=== PATIENT | male | born 1940 | race Caucasian/White ===

== ENCOUNTER → 2019-07-09 14:45 | Outpatient (BNVA) | payer MEDICARE, OTHER, SELFPAY | PROVIDERS: Family Provider Internal Medicine; PCP Internal Medicine; Visit Provider Family Medicine | DX: R05 Cough (principal) | CPT/HCPCS: 85025 ==

== ENCOUNTER 2019-07-18 15:57 | Inpatient (IN) | payer OTHER, MEDICARE, SELFPAY ==
[2019-07-18] VITALS (54 sets, daily range): BP systolic 82–127; BP diastolic 40–81; PULSE 0–95; RESP 12–28; TEMP 36.2–36.4; O2SAT 80–100; BMI 31.4
--- NOTE | 2019-07-18 15:59 | ED_ITS ---
Entered by Janine Campos, acting as scribe for HPI - Altered Mental Status General: Chief Complaint: General Medical Stated Complaint: ams/low hr Time Seen by Provider: 07/18/19 15:58 Source: EMS Mode of arrival: EMS Limitations: no limitations History of Present Illness: HPI narrative: 78 yo m came to the er by [facility] E[facility]. Ems states that the pt was seen at the dialysis clinic and pt seemed to be altered and have a low heart rate. Ems when they got there the pts hr was in the 60s. Patient has a GCS of 15 according to them. Blood pres sures been stable in route. Patient denies any symptoms. Patient currently has peritoneal dialysis late in that is to be drawn off at 9 PM tonight. MD complaint: altered mental status and other (low heart rate) Onset (ago): day(s) (today) Timing confirmed by: other Severity: mild Context: unknown Associated symptoms: Reports no associated symptoms Review of Systems General: Reports: other (negative unless marked) Resp: Reports: productive cough PFSH ED PFSH: Statuses (acute, chronic, etc) shown below reflect problem list status as previously entered and may not be historically accurate Medical History (Updated 07/18/19 @ 18:48 by Dieter Figueroa MD) Atrial fibrillation (Acute) Coronary artery disease (Acute) Deep venous thrombosis of upper extremity (Acute) End-stage renal disease on peritoneal dialysis (Acute) Hypertension (Acute) Surgical History (Updated 07/18/19 @ 18:36 by Dieter Figueroa MD) History of hernia repair (Acute) Peritoneal dialysis catheter in situ (Acute) Family History (Updated 07/18/19 @ 18:36 by Dieter Figueroa MD) Other Stroke Social History (Updated 07/18/19 @ 18:37 by Dieter Figueroa MD) Smoking and tobacco status: former smoker Alcohol intake: unknown Substance/Drug Use: never Physical Exam Const: COMMON NORMALS: no apparent distress, oriented x3, no limitations, healthy appearing and well nourished EXAM LIMITATIONS: no altered mental status GENERAL APPEARANCE: cooperative, well kempt and well developed ORIENTATION/CONSCIOUSNESS: Yes awake HENMT: COMMON NORMALS: normocephalic, head/scalp atraumatic, hearing grossly normal bilaterally, external ears normal, EAC's normal, external nose normal and moist oral mucous membranes HEAD & SCALP: normal to inspection, normocephalic and atraumatic FACE & SINUS: normal facial exam and face symmetric NOSE: external nose normal and nares normal EXTERNAL EAR: Yes external ears normal EXTERNAL AUDITORY CANAL: EAC's normal MOUTH: oral and palatal mucosa normal and tongue normal Eye: COMMON NORMALS: PERRL, EOMs intact bilaterally, conjunctivae normal and no scleral icterus GENERAL EYE: normal appearance of both eyes and normal light reflex CONJUNCTIVA: Yes conjunctivae normal SCLERA: sclerae normal CORNEA: Yes corneas normal PUPIL: Yes PERRL DIRECT OPHTHALMOSCOPY: Yes normal light reflex Neck/C-Spine: COMMON NORMALS: full ROM, no lymphadenopathy, supple, no meningeal signs and no JVD GENERAL: Yes normal visual inspection and Yes trachea midline CERVICAL SPINE: Yes cervical ROM normal Chest: COMMONS NORMALS: inspection of chest normal and palpation of chest normal Resp: COMMON NORMALS: normal respiratory effort, no retractions, no use of accessory muscles and clear to auscultation bilaterally EFFORT & INSPECTION: Yes able to speak in complete sentences AUSCULTATION: clear to auscultation bilaterally Cardio: COMMON NORMALS: no JVD, regular rate, regular rhythm, S1 normal heart sound, S2 normal heart sound, no gallops, no clicks, no murmurs and no rub JUGULAR VENOUS DISTENTION: no JVD RATE: regular rate RHYTHM: regular rhythm HEART SOUNDS: S1 normal and S2 normal GI: COMMON NORMALS: soft to palpation, non-tender, no hepatosplenomegaly and no masses INSPECTION: Yes normal to inspection PALPATION: Yes soft and Yes no hepatosplenomegaly : COMMON NORMALS: Yes no CVA tenderness BLADDER/KIDNEY EXAM: Yes no CVA tenderness Back/Pelvis: COMMON NORMALS: no CVA tenderness, thoracic and lumbar spine normal to inspection, no thoracic nor lumbar tenderness and thoraco-lumbar ROM normal Extremity: COMMON NORMALS: normal to inspection, full ROM, normal capillary refill, no joint enlargement, no clubbing, cyanosis or edema and no calf tenderness Neuro: COMMON NORMALS: oriented x3, CN's II-XII intact bilaterally, moves all extremities, no focal motor deficits and no sensory deficits noted MENINGEAL SIGNS: Yes no meningeal signs Psych: COMMON NORMALS: mental status grossly normal, thought process normal, cooperative, affect normal, speech normal and activity/motor behavior normal APPEARANCE: Yes well kempt SPEECH: Yes normal speech THOUGHT PROCESS: normal thought process Skin: COMMON NORMALS: no rashes or lesions noted, skin turgor normal, no jaundice, no petechiae and no mottling GENERAL SKIN EXAM: no rashes or lesions noted and turgor normal Course Vital Signs: Vital signs: Vital Signs Temperature 97.1 F L 07/18/19 21:14 Pulse Rate 63 07/18/19 21:45 Respiratory Rate 28 H 07/18/19 21:45 Blood Pressure 126/58 07/18/19 21:45 Pulse Oximetry 99 07/18/19 21:45 MDM - Altered Mental Status MDM Narrative: Medical decision making narrative: Mr. Ramirez is a 78-year-old male who comes in with altered mental status and bradycardia. He arrives stable with a GCS of 15 and stable vital signs. While he was here his heart rate dipped down to 30 as low as 30 itself. He was given atropine 1 mg and his heart rate improved to the 80s. He was asymptomatic and we did not have a chance to recycle his blood pressure during this time. His mentation is maintaining between a GCS of 13-15. With arousal he is a GCS of 15 and answers all questions appropriately. There are multiple possibilities at this time for his altered mental status including stroke, hypercalcemia, hyperammonia anemia/hepatic encephalopathy, sepsis, uremia among many others. The patient's vital signs are improving and staying stable with the therapies we have given including atropine. Narcan has had no effect on his mentation. The case was reviewed with Dr. Figueroa he agrees to a small fluid bolus as the patient is volume depleted clinically. This will help hypercalcemia. The patient has a Crowe catheter in place and has had 2 to 300 cc of urine drained. We will send this to look for infection as well. The patient has been empirically covered with antibiotics. This time again his altered mental status cause is unclear. The patient be admitted to the ICU by Dr. Figueroa for further evaluation and treatment. Lab Data: Attestation: I reviewed the patient's lab results. Labs: Lab Results 07/18/19 07/18/19 07/18/19 Range/Units 15:35 15:35 15:35 WBC 6.5 (4.0-10.0) 10^3/ uL RBC 2.82 L (4.1-5.3) 10^6/u L Hgb 9.4 L (11.7-16.6) g/dL Hct 29.5 L (42.0-52.0) % MCV 104.6 H (80-94) fL MCH 33.3 (28.0-34.0) pg MCHC 31.9 (30.0-36.0) g/dL RDW 16.2 H (12.1-15.1) % Plt Count 295 (130-400) 10^3/c mm MPV 10.3 (7.4-10.4) fL Neut % (Auto) 70.9 % Lymph % (Auto) 16.2 % Rush % (Auto) 9.2 % Eos % (Auto) 2.6 % Baso % (Auto) 0.3 % Neut # (Auto) 4.6 (1.8-7.7) 10^3/u L Lymph # (Auto) 1.1 (0.8-4.8) 10^3/u L Rush # (Auto) 0.6 (0.2-0.9) 10^3/u L Eos # (Auto) 0.2 (0.0-0.8) 10^3/u L Baso # (Auto) 0.0 (0.0-0.1) 10^3/u L Nucleated RBC % (a uto) 0 % Nucleated RBCs # 0.0 /100WBC PT 16.90 H (10.5-13.3) SECO NDS INR 1.33 H (0.8-1.2) Specimen Type Sample Site ABG pH (7.35-7.45) ABG pCO2 (35-45) mmHg ABG pO2 (80.0-100.0) mmH g ABG HCO3 (22-26) mmol/L ABG Base Excess (-2.0-2.0) mmol/ L Louis Test Hematocrit (42-52) % O2 Delivery Device O2 Liters/Min % Transplant Immunologist ID Sodium 140 (136-145) mmol/L Potassium 3.1 L (3.5-5.1) mmol/L Chloride 96 L (98-107) mmol/L Carbon Dioxide 34 H (22-29) mmol/L Anion Gap 13.1 (5-19) BUN 43 H (8-23) mg/dL Creatinine 4.1 H (0.7-1.2) mg/dL Glucose 100 (65-115) mg/dL Calculated Osmolal ity (285-295) mOsm/k g Lactic Acid (0.5-2.2) mmol/L Calcium 13.1 H (8.5-10.5) mg/dL Magnesium 2.1 (1.7-2.3) mg/dL Total Bilirubin 0.3 (0.15-1.2) mg/dL AST 19 (0-40) U/L ALT 10 (0-41) U/L Alkaline Phosphata se 62 (40-130) IU/L Ammonia (16-60) umol/L Troponin T Baselin e (0-15) ng/mL Troponin T 120 Min [place] (0-15) ng/mL Delta Troponin T (0-10) ABS# NT-Pro-B Natriuret Pep 97789 H (0-450) pg/mL Total Protein 6.0 L (6.6-8.7) g/dL Albumin 3.4 L (3.5-5.2) g/dL Globulin 2.6 (1.3-4.6) g/dL TSH (0.27-4.20) uIU/ mL Urine Color (Yellow) Urine Appearance (CLEAR) Urine pH (5-7) Ur Specific Gravit y (1.005-1.030) Urine Protein (Negative) Urine Glucose (UA) (Normal) Urine Ketones (Negative) Urine Occult Blood (Negative) Urine Nitrate (Negative) Urine Bilirubin (NEGATIVE) Urine Urobilinogen (Negative) mg/dL Ur Leukocyte Heaven ase (Negative) Urine RBC (0-2) /hpf Urine WBC (0-5) /hpf Ur Squamous Epith Cells (0-5) Amorphous Sediment Urine Bacteria (NONE) Hyaline Casts Urine Opiates Scre en (Negative) ng/mL Ur Barbiturates Sc reen (Negative) ng/mL Ur Phencyclidine S crn (Negative) ng/mL Ur Amphetamines Sc reen (Negative) ng/mL U Benzodiazepines Scrn (Negative) ng/mL Urine Cocaine Scre en (Negative) ng/mL U Marijuana (THC) Screen (Negative) ng/mL Ethyl Alcohol (0-10) mg/dL Influenza Type A A g (Negative) POC Influenza B Ag (Negative) 07/18/19 07/18/19 07/18/19 Range/Units 15:35 16:02 16:10 WBC (4.0-10.0) 10^3/ uL RBC (4.1-5.3) 10^6/u L Hgb (11.7-16.6) g/dL Hct (42.0-52.0) % MCV (80-94) fL MCH (28.0-34.0) pg MCHC (30.0-36.0) g/dL RDW (12.1-15.1) % Plt Count (130-400) 10^3/c mm MPV (7.4-10.4) fL Neut % (Auto) % Lymph % (Auto) % Rush % (Auto) % Eos % (Auto) % Baso % (Auto) % Neut # (Auto) (1.8-7.7) 10^3/u L Lymph # (Auto) (0.8-4.8) 10^3/u L Rush # (Auto) (0.2-0.9) 10^3/u L Eos # (Auto) (0.0-0.8) 10^3/u L Baso # (Auto) (0.0-0.1) 10^3/u L Nucleated RBC % (a uto) % Nucleated RBCs # /100WBC PT (10.5-13.3) SECO NDS INR (0.8-1.2) Specimen Type Arterial Sample Site Radial, right ABG pH 7.45 (7.35-7.45) ABG pCO2 50.2 H (35-45) mmHg ABG pO2 65.7 L (80.0-100.0) mmH g ABG HCO3 34.6 H (22-26) mmol/L ABG Base Excess 9.3 H (-2.0-2.0) mmol/ L Louis Test Pos Hematocrit 29.3 L (42-52) % O2 Delivery Device Nc O2 Liters/Min 3.0 % Transplant Immunologist ID monro Sodium (136-145) mmol/L Potassium (3.5-5.1) mmol/L Chloride (98-107) mmol/L Carbon Dioxide (22-29) mmol/L Anion Gap (5-19) BUN (8-23) mg/dL Creatinine (0.7-1.2) mg/dL Glucose (65-115) mg/dL Calculated Osmolal ity (285-295) mOsm/k g Lactic Acid 1.7 (0.5-2.2) mmol/L Calcium (8.5-10.5) mg/dL Magnesium (1.7-2.3) mg/dL Total Bilirubin (0.15-1.2) mg/dL AST (0-40) U/L ALT (0-41) U/L Alkaline Phosphata se (40-130) IU/L Ammonia (16-60) umol/L Troponin T Baselin e 244 H* (0-15) ng/mL Troponin T 120 Min [place] (0-15) ng/mL Delta Troponin T (0-10) ABS# NT-Pro-B Natriuret Pep (0-450) pg/mL Total Protein (6.6-8.7) g/dL Albumin (3.5-5.2) g/dL Globulin (1.3-4.6) g/dL TSH (0.27-4.20) uIU/ mL Urine Color (Yellow) Urine Appearance (CLEAR) Urine pH (5-7) Ur Specific Gravit y (1.005-1.030) Urine Protein (Negative) Urine Glucose (UA) (Normal) Urine Ketones (Negative) Urine Occult Blood (Negative) Urine Nitrate (Negative) Urine Bilirubin (NEGATIVE) Urine Urobilinogen (Negative) mg/dL Ur Leukocyte Heaven ase (Negative) Urine RBC (0-2) /hpf Urine WBC (0-5) /hpf Ur Squamous Epith Cells (0-5) Amorphous Sediment Urine Bacteria (NONE) Hyaline Casts Urine Opiates Scre en (Negative) ng/mL Ur Barbiturates Sc reen (Negative) ng/mL Ur Phencyclidine S crn (Negative) ng/mL Ur Amphetamines Sc reen (Negative) ng/mL U Benzodiazepines Scrn (Negative) ng/mL Urine Cocaine Scre en (Negative) ng/mL U Marijuana (THC) Screen (Negative) ng/mL Ethyl Alcohol (0-10) mg/dL Influenza Type A A g (Negative) POC Influenza B Ag (Negative) 07/18/19 07/18/19 07/18/19 Range/Units 16:30 17:46 17:46 WBC (4.0-10.0) 10^3/ uL RBC (4.1-5.3) 10^6/u L Hgb (11.7-16.6) g/dL Hct (42.0-52.0) % MCV (80-94) fL MCH (28.0-34.0) pg MCHC (30.0-36.0) g/dL RDW (12.1-15.1) % Plt Count (130-400) 10^3/c mm MPV (7.4-10.4) fL Neut % (Auto) % Lymph % (Auto) % Rush % (Auto) % Eos % (Auto) % Baso % (Auto) % Neut # (Auto) (1.8-7.7) 10^3/u L Lymph # (Auto) (0.8-4.8) 10^3/u L Rush # (Auto) (0.2-0.9) 10^3/u L Eos # (Auto) (0.0-0.8) 10^3/u L Baso # (Auto) (0.0-0.1) 10^3/u L Nucleated RBC % (a uto) % Nucleated RBCs # /100WBC PT (10.5-13.3) SECO NDS INR (0.8-1.2) Specimen Type Sample Site ABG pH (7.35-7.45) ABG pCO2 (35-45) mmHg ABG pO2 (80.0-100.0) mmH g ABG HCO3 (22-26) mmol/L ABG Base Excess (-2.0-2.0) mmol/ L Louis Test Hematocrit (42-52) % O2 Delivery Device O2 Liters/Min % Transplant Immunologist ID Sodium (136-145) mmol/L Potassium (3.5-5.1) mmol/L Chloride (98-107) mmol/L Carbon Dioxide (22-29) mmol/L Anion Gap (5-19) BUN (8-23) mg/dL Creatinine (0.7-1.2) mg/dL Glucose (65-115) mg/dL Calculated Osmolal ity (285-295) mOsm/k g Lactic Acid (0.5-2.2) mmol/L Calcium (8.5-10.5) mg/dL Magnesium (1.7-2.3) mg/dL Total Bilirubin (0.15-1.2) mg/dL AST (0-40) U/L ALT (0-41) U/L Alkaline Phosphata se (40-130) IU/L Ammonia 19 (16-60) umol/L Troponin T Baselin e (0-15) ng/mL Troponin T 120 Min [place] 224.40 H (0-15) ng/mL Delta Troponin T -19.60 L (0-10) ABS# NT-Pro-B Natriuret Pep (0-450) pg/mL Total Protein (6.6-8.7) g/dL Albumin (3.5-5.2) g/dL Globulin (1.3-4.6) g/dL TSH (0.27-4.20) uIU/ mL Urine Color (Yellow) Urine Appearance (CLEAR) Urine pH (5-7) Ur Specific Gravit y (1.005-1.030) Urine Protein (Negative) Urine Glucose (UA) (Normal) Urine Ketones (Negative) Urine Occult Blood (Negative) Urine Nitrate (Negative) Urine Bilirubin (NEGATIVE) Urine Urobilinogen (Negative) mg/dL Ur Leukocyte Heaven ase (Negative) Urine RBC (0-2) /hpf Urine WBC (0-5) /hpf Ur Squamous Epith Cells (0-5) Amorphous Sediment Urine Bacteria (NONE) Hyaline Casts Urine Opiates Scre en (Negative) ng/mL Ur Barbiturates Sc reen (Negative) ng/mL Ur Phencyclidine S crn (Negative) ng/mL Ur Amphetamines Sc reen (Negative) ng/mL U Benzodiazepines Scrn (Negative) ng/mL Urine Cocaine Scre en (Negative) ng/mL U Marijuana (THC) Screen (Negative) ng/mL Ethyl Alcohol (0-10) mg/dL Influenza Type A A g Negative (Negative) POC Influenza B Ag Negative (Negative) 07/18/19 07/18/19 07/18/19 Range/Units 17:46 17:46 17:46 WBC (4.0-10.0) 10^3/ uL RBC (4.1-5.3) 10^6/u L Hgb (11.7-16.6) g/dL Hct (42.0-52.0) % MCV (80-94) fL MCH (28.0-34.0) pg MCHC (30.0-36.0) g/dL RDW (12.1-15.1) % Plt Count (130-400) 10^3/c mm MPV (7.4-10.4) fL Neut % (Auto) % Lymph % (Auto) % Rush % (Auto) % Eos % (Auto) % Baso % (Auto) % Neut # (Auto) (1.8-7.7) 10^3/u L Lymph # (Auto) (0.8-4.8) 10^3/u L Rush # (Auto) (0.2-0.9) 10^3/u L Eos # (Auto) (0.0-0.8) 10^3/u L Baso # (Auto) (0.0-0.1) 10^3/u L Nucleated RBC % (a uto) % Nucleated RBCs # /100WBC PT (10.5-13.3) SECO NDS INR (0.8-1.2) Specimen Type Sample Site ABG pH (7.35-7.45) ABG pCO2 (35-45) mmHg ABG pO2 (80.0-100.0) mmH g ABG HCO3 (22-26) mmol/L ABG Base Excess (-2.0-2.0) mmol/ L Louis Test Hematocrit (42-52) % O2 Delivery Device O2 Liters/Min % Transplant Immunologist ID Sodium 138 (136-145) mmol/L Potassium 3.1 L (3.5-5.1) mmol/L Chloride 96 L (98-107) mmol/L Carbon Dioxide 30 H (22-29) mmol/L Anion Gap 15.1 (5-19) BUN 44 H (8-23) mg/dL Creatinine 4.2 H (0.7-1.2) mg/dL Glucose 103 (65-115) mg/dL Calculated Osmolal ity 284 L (285-295) mOsm/k g Lactic Acid (0.5-2.2) mmol/L Calcium 12.8 H (8.5-10.5) mg/dL Magnesium (1.7-2.3) mg/dL Total Bilirubin (0.15-1.2) mg/dL AST (0-40) U/L ALT (0-41) U/L Alkaline Phosphata se (40-130) IU/L Ammonia (16-60) umol/L Troponin T Baselin e (0-15) ng/mL Troponin T 120 Min [place] (0-15) ng/mL Delta Troponin T (0-10) ABS# NT-Pro-B Natriuret Pep (0-450) pg/mL Total Protein (6.6-8.7) g/dL Albumin (3.5-5.2) g/dL Globulin (1.3-4.6) g/dL TSH 3.10 (0.27-4.20) uIU/ mL Urine Color (Yellow) Urine Appearance (CLEAR) Urine pH (5-7) Ur Specific Gravit y (1.005-1.030) Urine Protein (Negative) Urine Glucose (UA) (Normal) Urine Ketones (Negative) Urine Occult Blood (Negative) Urine Nitrate (Negative) Urine Bilirubin (NEGATIVE) Urine Urobilinogen (Negative) mg/dL Ur Leukocyte Heaven ase (Negative) Urine RBC (0-2) /hpf Urine WBC (0-5) /hpf Ur Squamous Epith Cells (0-5) Amorphous Sediment Urine Bacteria (NONE) Hyaline Casts Urine Opiates Scre en (Negative) ng/mL Ur Barbiturates Sc reen (Negative) ng/mL Ur Phencyclidine S crn (Negative) ng/mL Ur Amphetamines Sc reen (Negative) ng/mL U Benzodiazepines Scrn (Negative) ng/mL Urine Cocaine Scre en (Negative) ng/mL U Marijuana (THC) Screen (Negative) ng/mL Ethyl Alcohol < 10 (0-10) mg/dL Influenza Type A A g (Negative) POC Influenza B Ag (Negative) 07/18/19 07/18/19 Range/Units 17:51 17:57 WBC (4.0-10.0) 10^3/ uL RBC (4.1-5.3) 10^6/u L Hgb (11.7-16.6) g/dL Hct (42.0-52.0) % MCV (80-94) fL MCH (28.0-34.0) pg MCHC (30.0-36.0) g/dL RDW (12.1-15.1) % Plt Count (130-400) 10^3/c mm MPV (7.4-10.4) fL Neut % (Auto) % Lymph % (Auto) % Rush % (Auto) % Eos % (Auto) % Baso % (Auto) % Neut # (Auto) (1.8-7.7) 10^3/u L Lymph # (Auto) (0.8-4.8) 10^3/u L Rush # (Auto) (0.2-0.9) 10^3/u L Eos # (Auto) (0.0-0.8) 10^3/u L Baso # (Auto) (0.0-0.1) 10^3/u L Nucleated RBC % (a uto) % Nucleated RBCs # /100WBC PT (10.5-13.3) SECO NDS INR (0.8-1.2) Specimen Type Sample Site ABG pH (7.35-7.45) ABG pCO2 (35-45) mmHg ABG pO2 (80.0-100.0) mmH g ABG HCO3 (22-26) mmol/L ABG Base Excess (-2.0-2.0) mmol/ L Oluis Test Hematocrit (42-52) % O2 Delivery Device O2 Liters/Min % Transplant Immunologist ID Sodium (136-145) mmol/L Potassium (3.5-5.1) mmol/L Chloride (98-107) mmol/L Carbon Dioxide (22-29) mmol/L Anion Gap (5-19) BUN (8-23) mg/dL Creatinine (0.7-1.2) mg/dL Glucose (65-115) mg/dL Calculated Osmolal ity (285-295) mOsm/k g Lactic Acid (0.5-2.2) mmol/L Calcium (8.5-10.5) mg/dL Magnesium (1.7-2.3) mg/dL Total Bilirubin (0.15-1.2) mg/dL AST (0-40) U/L ALT (0-41) U/L Alkaline Phosphata se (40-130) IU/L Ammonia (16-60) umol/L Troponin T Baselin e (0-15) ng/mL Troponin T 120 Min [place] (0-15) ng/mL Delta Troponin T (0-10) ABS# NT-Pro-B Natriuret Pep (0-450) pg/mL Total Protein (6.6-8.7) g/dL Albumin (3.5-5.2) g/dL Globulin (1.3-4.6) g/dL TSH (0.27-4.20) uIU/ mL Urine Color Dark yellow (Yellow) Urine Appearance Clear (CLEAR) Urine pH 5 (5-7) Ur Specific Gravit y 1.015 (1.005-1.030) Urine Protein Neg (Negative) Urine Glucose (UA) Norm (Normal) Urine Ketones Negative (Negative) Urine Occult Blood 3+ H (Negative) Urine Nitrate Negative (Negative) Urine Bilirubin Neg (NEGATIVE) Urine Urobilinogen Norm (Negative) mg/dL Ur Leukocyte Heaven ase Negative (Negative) Urine RBC 15-25 H (0-2) /hpf Urine WBC 0-4 H (0-5) /hpf Ur Squamous Epith Cells None (0-5) Amorphous Sediment 1+ Urine Bacteria 1+ H (NONE) Hyaline Casts Rare Urine Opiates Scre en Positive H (Negative) ng/mL Ur Barbiturates Sc reen Negative (Negative) ng/mL Ur Phencyclidine S crn Negative (Negative) ng/mL Ur Amphetamines Sc reen Negative (Negative) ng/mL U Benzodiazepines Scrn Positive H (Negative) ng/mL Urine Cocaine Scre en Negative (Negative) ng/mL U Marijuana (THC) Screen Negative (Negative) ng/mL Ethyl Alcohol (0-10) mg/dL Influenza Type A A g (Negative) POC Influenza B Ag (Negative) Imaging Data^: CXR: Radiologist's impression: [address] [address] XRay Report Signed Patient: Madhavi Ramirez #: [id number] : 1Acct#:[id number] Age/Sex: 78 / MADM Date: 07/18/19 Loc: ERRoom/Bed: Attending Dr: Ordering Provider/Ordering MD: Jayashree Bah DO Date of Service: 07/18/19 Procedure(s): XR chest 1V portable [id number] Accession Number(s): [id number] Report Number: [id number] WS: [id number] PORTABLE CHEST HISTORY: cough COMPARISON: 04/27/2019 Pacer pads are present over the thorax. Small LEFT pleural effusion and atelectasis at the LEFT lung base. Similar to the prior study with may be minimal improvement. No pneumothorax. Cardiac size: Moderately enlarged cardiac silhouette. Mediastinum/Aorta: Mild atherosclerosis aorta. No osseous abnormality seen. XR/XR chest 1V portable [id number] IMPRESSION: Small LEFT pleural effusion and LEFT basilar atelectasis. Slight improvement since the prior study. Dictated By:Janie Murillo DO Signed By:Janie Murillo DOSigned Date/Time:07/18/191611 DD/ 161 CT Head: Radiologist's impression: [place] [address] CT Scan Report Signed Patient: Madhavi Ramirez II Unit #: [id number] : 1940 Age/Sex: 78 / M ADM Date: 07/18/19 Loc: ER Room/Bed: Attending Dr: Ordering Provider/Ordering MD: Jayashree Bah DO Date of Service: 07/18/19 Procedure(s): CT head wo con* [id number] Accession Number(s): [id number] Report Number: [id number] PROCEDURE INFORMATION: Exam: CT Head Without Contrast Exam date and time: 07/18/2019 4:06 PM Age: 78 years old Clinical indication: Altered mental status/memory loss; Patient HX: Scanned twice due to motion. Best images; Additional info: Chase/ams TECHNIQUE: Imaging protocol: Computed tomography of the head without contrast. Total DLP: 996.33 mGy-cm Radiation optimization: All CT scans at this facility use at least one of these dose optimization techniques: automated exposure control; mA and/or kV adjustment per patient size (includes targeted exams where dose is matched to clinical indication); or iterative reconstruction. COMPARISON: No relevant prior studies available. FINDINGS: Limitations: Study is somewhat limited by patient motion. Brain: There is moderate cortical atrophy. Allowing for the presence of motion artifact, there is no intracranial mass or hemorrhage. Midline shift: There is no shift of midline structures. Ventricles: Normal. No ventriculomegaly. Bones/joints: No calvarial fracture is demonstrated. Sinuses: There is a large mucous retention cyst in the left maxillary sinus and there are small mucous retention cysts in the right maxillary sinus. Mastoid air cells: Visualized mastoid air cells are well aerated. Soft tissues: Unremarkable. CT/CT head wo con* [id number] IMPRESSION: Limited exam. No acute intracranial finding. Radiation Dose CTDIVOL = (mGy): DLP = 996.33 (mGy-cm) Dictated By: Ken Fields Signed By: Ken Fields Signed Date/Time: 07/18/191752 DD/ 51 EKG Data^: EKG 1: Attestation: I personally reviewed and interpreted this EKG as follows: EKG interpretation date: 07/18/19 EKG interpretation time: 16:15 Interpretation: Undetermined rhythm with a ventricular rate of 51 beats a minute, frequent PVCs, widened QRS, similar to previous EKG 2: Attestation: I personally reviewed and interpreted this EKG as follows: EKG interpretation date: 07/18/19 EKG interpretation time: 18:00 Interpretation: Atrial fibrillation with a ventricular rate of 67, widened QRS, baseline artifact, nonspecific ST-T wave changes. Discharge Plan Discharge Patient Disposition: Admitted As Inpatient Admit Provider: Dieter Figueroa Clinical Impression: Acute alteration in mental status, Bradycardia, Hypercalcemia, Acute h ypokalemia Condition: Stable Referrals: Luis Antonio Mulligan [Primary Care Provider] - Discharge Date/Time: 07/18/19 20:54 Coding Level of Care Code ED Python Web Developer for Chg Fwd Exam Problem Focused The documentation recorded by the Andres ibarra Stephanie Lyn, accurately reflects the service I personally performed and the decisions made by Niurka dewey Eli N Jul 18, 2019 15:57
--- NOTE | 2019-07-18 15:59 | XR_ITS ---
WS: [id number] PORTABLE CHEST HISTORY: cough COMPARISON: 04/27/2019 Pacer pads are present over the thorax. Small LEFT pleural effusion and atelectasis at the LEFT lung base. Similar to the prior study with ma y be minimal improvement. No pneumothorax. Cardiac size: Moderately enlarged cardiac silhouette. Mediastinum/Aorta: Mild atherosclerosis aorta. No osseous abnormality seen. XR/XR chest 1V portable [id number] IMPRESSION: Small LEFT pleural effusion and LEFT basilar atelectasis. Slight improvement si nce the prior study.
--- NOTE | 2019-07-18 16:00 | ECG_ITS ---
Measurements Intervals [place] Rate: 51 P: CT: 0 QRS: -59 QRSD: 125 T: -60 QT: 357 QTc: 332 UNCERTAIN IRREGULAR RHYTHM with frequent PVCs, likely atrial fibrillation POSSIBLE RIGHT VENTRICULAR CONDUCTION DELAY [RSR (QR) IN V1/V2] POSSIBLE ANTERIOR MYOCARDIAL INFARCTION , PROBABLY OLD [30 ms Q WAVE IN V3/V4, Or R < 0.2 mV IN V4] INFERIOR MYOCARDIAL INFARCTION , PROBABLY OLD [40+ ms Q WAVE AND/OR ST/T AB ABNORMALITY IN II/aVF] Compared to ECG 04/15/2019 16:46:07 Ventricular premature complex still present Myocardial infarct finding still present Electronically Signed On 07-18-2019 17:31:10 RN PATIENT CARE by Christian Mcdonald M.D. [id number] ellis
[2019-07-18] MEDS: benzonatate 100 mg Capsule PO (16:14)
[2019-07-18] MEDS: ondansetron 2 mg/ML SDV 2 mL 4 MG IVP (16:14)
[2019-07-18 16:16] LABS: ABG PCO2 50.2 mmHg (35-45); ABG PH Result 7.45 (7.35-7.45); Arterial Blood Gas Hematocrit 29.3 % (42-52); Base Excess ABG 9.3 mmol/L (-2.0-2.0); Blood Gas Allen Test Pos; Blood Gas Sample Site Radial, right; Blood Gas Sample Type Arterial; HCO3 ABG 34.6 mmol/L (22-26); Oxygen Device NC; PO2 ABG 65.7 mmHg (80.0-100.0)
--- NOTE | 2019-07-18 16:16 | PC.NURSE ---
Patients aid reports that the patient went dialysis for blood work. Patients aid states that the sent him here for low O2 and low heart rate. Patient states he has had a cough for about 1 week.
[2019-07-18 16:24] LABS: Basophils % 0.3 %; Eosinophils # 0.2 10^3/uL (0.0-0.8); Eosinophils % 2.6 %; Hematocrit 29.5 % (42.0-52.0); Hemoglobin 9.4 g/dL (11.7-16.6); Lymphocytes # 1.1 10^3/uL (0.8-4.8); Lymphocytes % 16.2 %; Mean Corpuscular HGB Conc 31.9 g/dL (30.0-36.0); Mean Corpuscular Hemoglobin 33.3 pg (28.0-34.0); Mean Corpuscular Volume 104.6 fL (80-94); Mean Platelet Volume 10.3 fL (7.4-10.4); Monocytes # 0.6 10^3/uL (0.2-0.9); Monocytes % 9.2 %; Neutrophils # 4.6 10^3/uL (1.8-7.7); Neutrophils % 70.9 %; Nucleated Red Blood Cells % 0 %; Platelet Count 295 10^3/cmm (130-400); Red Blood Count 2.82 10^6/uL (4.1-5.3); Red Cell Distribution Width 16.2 % (12.1-15.1); White Blood Count 6.5 10^3/uL (4.0-10.0)
[2019-07-18 16:33] LABS: INR 1.33 (0.8-1.2)
[2019-07-18 16:44] LABS: Lactic Sepsis W/Reflex 1.7 mmol/L (0.5-2.2)
[2019-07-18] MEDS: atropine 0.1 mg/mL Syr 10 mL 3 MG (16:48)
[2019-07-18 16:51] LABS: Troponin(5th) Baseline 244 ng/mL (0-15)
[2019-07-18 16:55] LABS: Alanine Aminotransferase 10 U/L (0-41); Albumin Level 3.4 g/dL (3.5-5.2); Alkaline Phosphatase 62 IU/L (40-130); Anion Gap 13.1 (5-19); Aspartate Amino Transferase 19 U/L (0-40); Blood Urea Nitrogen 43 mg/dL (8-23); Calcium 13.1 mg/dL (8.5-10.5); Carbon Dioxide 34 mmol/L (22-29); Chloride 96 mmol/L (98-107); Globulin 2.6 g/dL (1.3-4.6); Glucose 100 mg/dL (65-115); Magnesium 2.1 mg/dL (1.7-2.3); NT Pro B Type Natriuretic Pept 12748 pg/mL (0-450); Potassium 3.1 mmol/L (3.5-5.1); Sodium 140 mmol/L (136-145); Total Bilirubin 0.3 mg/dL (0.15-1.2)
[2019-07-18] MEDS: naloxone 0.4 mg/ml SDV (16:56)
[2019-07-18] MEDS: naloxone 0.4 mg/ml SDV IVP ×2 (17:01→17:30)
[2019-07-18 17:11] LABS: Influenza A by IFA Negative (Negative); Influenza B by IFA Negative (Negative)
--- NOTE | 2019-07-18 18:00 | ECG_ITS ---
Measurements Intervals [place] Rate: 67 P: [place]: 0 QRS: 265 QRSD: 43 T: 0 QT: 171 QTc: 181 ATRIAL FIBRILLATION MARKED RIGHT AXIS DEVIATION [QRS AXIS > 100] LOW QRS VOLTAGE [QRS DEFLECTION < 0.5/1.0 mV IN LIMB/CHEST LEADS] POSSIBLE ANTERIOR MYOCARDIAL INFARCTION [30 ms Q WAVE IN V3/V4, OR R < 0.2 mV V4], PROBABLY OLD POSSIBLE INFERIOR MYOCARDIAL INFARCTION [30 ms Q WAVE IN II/aVF], OF IN INDETERMINATE AGE Compared to ECG 07/18/2019 16:15:41 Right-axis deviation now present Low QRS voltage now present Ventricular premature complex(es) no longer present Myocardial infarct finding still present Electronically Signed On 07-19-2019 16:34:33 BOTTLE LABELER by Christian Mcdonald M.D. [email or web address] ellis
[2019-07-18 18:13] LABS: Bilirubin Urine Neg (NEGATIVE); Blood Urine 3+ (Negative); Glucose Urine UA Norm (Normal); Ketones Urine Negative (Negative); Leukocyte Esterase Urine Negative (Negative); Nitrate Urine Negative (Negative); Protein Urine Neg (Negative); RBC Urine 15-25 /hpf (0-2); Specific Gravity, Urine 1.015 (1.005-1.030); Urine Appearance Clear (CLEAR); Urine Color Dark Yellow (Yellow); Urobilinogen Urine Norm (Negative); pH Urine 5 (5-7)
[2019-07-18 18:14] LABS: Bacteria Urine 1+; WBC Urine 0-4 /hpf (0-5)
[2019-07-18 18:14] LABS: Ammonia 19 umol/L (16-60)
[2019-07-18 18:15] LABS: Add Urine Culture? Yes; Amorphous Sediment Urine 1+; Hyaline Casts Urine RARE
[2019-07-18] MEDS: sodium chloride 0.9% 1,000 ML 100 ML IV (18:26)
[2019-07-18 18:29] LABS: Alcohol Level < 10 mg/dL (0-10)
--- NOTE | 2019-07-18 18:30 | PM.HP ---
Providers/Chief Complaint Primary Care Provider: Luis Antonio Mulligan Chief Complaint: ams/low hr History of Present Illness Madhavi Ramirez II is a 78 year old male that from my understanding presented to the emergency department from dialysis clinic where he was getting his blood drawn. He normally gets peritoneal dialysis. They noticed he was lethargic and directed him to the emergency department. The patient is currently somewhat lethargic, on BiPAP, and is unable to give an adequate history currently. He was noted to be significantly bradycardic, when evaluated by ambulance services as well as dialysis clinic. There is been no history of fever. There is been no trauma. He did receive atropine in the emergency department along with 1 dose of Zosyn. Some low-dose IV fluids have been started. Review of Systems General: Reports: ROS unobtainable due to mental status and other (Patient lethargic, review of systems cannot be obtained) Medications/Allergies Home Medications Medication Instructions Recorded Confirmed Last Taken Type Liquacel Protein Supplement 30 ml PO TID 07/18/19 07/18/19 07/18/19 History acetaminophen [Arthritis Pain 650 mg PO Q8H PRN 07/18/19 07/18/19 Unknown History Relief (acetam)] apixaban [Eliquis] 2.5 mg PO BID 07/18/19 07/18/19 07/18/19 08:00 History aspirin [Aspir-81] 81 mg PO DAILY 07/18/19 07/18/19 07/18/19 08:00 History benzonatate 200 mg PO TID PRN 07/18/19 07/18/19 Unknown History bisacodyl 10 mg RI DAILY PRN 07/18/19 07/18/19 Unknown History bisacodyl 20 mg PO DAILY PRN 07/18/19 07/18/19 Unknown History calcium acetate 2,001 mg PO TID 07/18/19 07/18/19 07/18/19 History diltiazem HCl 360 mg PO DAILY 07/18/19 07/18/19 07/18/19 08:00 History docusate sodium [Colace] 100 mg PO BID 07/18/19 07/18/19 07/18/19 08:00 History finasteride 5 mg PO DAILY 07/18/19 07/18/19 07/18/19 08:00 History furosemide [Lasix] 80 mg PO BID 07/18/19 07/18/19 07/18/19 History guaifenesin 200 mg PO Q4H PRN 07/18/19 07/18/19 Unknown History lactulose 30 ml PO BID 07/18/19 07/18/19 07/18/19 08:00 History magnesium hydroxide [Milk of 30 ml PO DAILY PRN 07/18/19 07/18/19 Unknown History Magnesia] ondansetron HCl [Zofran] 4 mg PO Q6H PRN 07/18/19 07/18/19 Unknown History polyethylene glycol 3350 [Miralax] 17 g PO DAILY 07/18/19 07/18/19 07/18/19 08:00 History potassium chloride 20 meq PO DAILY 07/18/19 07/18/19 07/18/19 08:00 History promethazine-codeine 5 ml PO Q6H PRN 07/18/19 07/18/19 Unknown History sennosides-docusate sodium 2 tab PO BID PRN 07/18/19 07/18/19 Unknown History [Senna-S] sodium phosphates [Enema 118 ml RI DAILY PRN 07/18/19 07/18/19 Unknown History Disposable] tamsulosin [Flomax] 0.8 mg PO DAILY 07/18/19 07/18/19 07/18/19 08:00 History tramadol [Ultram] 50 mg PO Q6H PRN 07/18/19 07/18/19 Unknown History vit B,J-LV-vfcs-selen-vit D3-E 1 tab PO DAILY 07/18/19 07/18/19 07/18/19 08:00 History [RenaPlex-D] Allergies Allergy/AdvReac Type Severity Reaction Status Date / Time No Known Allergies Allergy Verified 07/18/19 16:10 PFSH Acute PFSH: Statuses (acute, chronic, etc) shown below reflect problem list status as previously entered and may not be historically accurate Medical History (Updated 07/18/19 @ 18:48 by Dieter Figueroa MD) Atrial fibrillation (Acute) Coronary artery disease (Acute) Deep venous thrombosis of upper extremity (Acute) End-stage renal disease on peritoneal dialysis (Acute) Hypertension (Acute) Surgical History (Updated 07/18/19 @ 18:36 by Dieter Figueroa MD) History of hernia repair (Acute) Peritoneal dialysis catheter in situ (Acute) Family History (Updated 07/18/19 @ 18:36 by Dieter Figueroa MD) Other Stroke Social History (Updated 07/18/19 @ 18:37 by Dieter Figueroa MD) Smoking and tobacco status: former smoker Alcohol intake: unknown Substance/Drug Use: never Vitals/I&O/Wt Last Vital Signs Temp 97.6 F 07/18/19 15:59 Pulse 86 07/18/19 17:47 Resp 16 07/18/19 17:47 BP 111/59 07/18/19 17:47 Pulse Ox 94 07/18/19 17:47 Weight last 48 hrs Weight 111.13 kg Physical Exam Narrative: EXAM NARRATIVE: General exam demonstrates a male, who will arouse when stimulated on BiPAP HEENT: Pupils equally round. Oropharynx clear. Neck is supple no lymphadenopathy or thyromegaly Cardiovascular irregular, irregular Lungs clear no wheezing or crackles Abdomen is soft with positive bowel sounds. He is somewhat distended. He has no pain. I have seen him before and his exam is consistent with no significant changes. Peritoneal dialysis catheter is noted is deferred Extremities show 2+ edema Skin without rash Neuro no obvious focal deficits. Somewhat lethargic but easily arousable and moves all extremities. Urinary Catheter Management^: Crowe: Cath Placed During This Visit: yes Urethral Indwelling: Yes Reason for Continuing Indwelling Catheter: Accurate Measurement of Urinary Output in Critically Ill Patients Urinary Catheter Date of Insertion: 07/18/19 Urinary Catheter Time of Insertion: 17:49 Data : 07/18/19 15:35 07/18/19 15:35 Micro: Microbiology 07/18/19 17:47 Blood Culture - Preliminary Blood SPECIMEN COLLECTED 07/18/19 17:46 Blood Culture - Preliminary Blood SPECIMEN COLLECTED 07/18/19 16:14 Blood Culture - Preliminary Blood SPECIMEN COLLECTED Other data: EKG demonstrates multiple PVCs. Probably underlying atrial fibrillation. Left axis deviation. ABG demonstrates no evidence of acidosis. Mild hypercarbia is present. Sodium slightly low at 3.1. BUN and creatinine compatible with peritoneal dialysis. Calcium markedly elevated at 13.1. Troponin elevated at 244. Repeat is pending. Urinalysis 15-25 reds, 0-4 whites. Influenza negative. Repeat EKG demonstrates atrial fibrillation, rate of 67, similar to previous but less PVCs. A&P Assessment and plan (1) Bradycardia: Significant bradycardia on admission. This may be secondary to his calcium channel anila which he is on at home. This will need to be held. Monitor closely in the ICU. Slight amount of hydration but carefully secondary to potential for fluid overload Check TSH Atropine. Status: Acute Code(s): R00.1 - Bradycardia, unspecified (2) Hypercalcemia: Repeat BMP, to ensure this is not a laboratory error. Hydration. He was on quite a bit of calcium prior to coming in which may contribute some. This could contribute to lethargy. Status: Acute Code(s): E83.52 - Hypercalcemia (3) Acute alteration in mental status: Possibly secondary to hypercalcemia Status: Acute Code(s): R41.82 - Altered mental status, unspecified (4) Acute hypokalemia: Supplement cautiously Status: Acute Code(s): E87.6 - Hypokalemia (5) End-stage renal disease on peritoneal dialysis: Nephrology consultation At this point I do not think he has any evidence for peritonitis. However, he has received 1 dose of Zosyn in the emergency department. Will allow nephrology to evaluate, and peritoneal fluid can be analyzed if they believe this is needed. Note that his white blood cell count is normal, he is afebrile, and he has no abdominal discomfort. Status: Acute Code(s): N18.6 - End stage renal disease; Z99.2 - Dependence on renal dialysis Additional A&P Information History of DVT right brachiocephalic vein. Continue Eliquis Atrial fibrillation. Anticoagulated with Eliquis History of hypertension. Holding Cardizem secondary to bradycardia Nursing facility records which indicate a past history of coronary disease. Attestations Medical Necessity Statement*: Will need greater than 2 midnight stay for evaluation of hypercalcemia, lethargic, bradycardia Coding Level of Care Code Acute Vascular Sonographer for [facility] Diagnoses Bradycardia R00.1 Hypercalcemia E83.52 Acute alteration in mental status R41.82 Acute hypokalemia E87.6 End-stage renal disease on peritoneal dialysis N18.6; Z99.2
[2019-07-18] MEDS: piperacillin-tazobactam 3.375 GM in sodium chloride 0.9% (plus) 50 ML IV (18:45)
--- NOTE | 2019-07-18 19:15 | PC.NURSE ---
REPORT RECEIVED FROM SAIMA NAAV AND CARE TRANSFERRED TO SAIMA MARTIN
--- NOTE | 2019-07-18 19:18 | PC.NURSE ---
PATIENT ASLEEP IN BED
[2019-07-18 19:26] LABS: Anion Gap 15.1 (5-19); Blood Urea Nitrogen 44 mg/dL (8-23); Calcium 12.8 mg/dL (8.5-10.5); Carbon Dioxide 30 mmol/L (22-29); Chloride 96 mmol/L (98-107); Glucose 103 mg/dL (65-115); Osmolality Calculated 284 mOsm/kg (285-295); Potassium 3.1 mmol/L (3.5-5.1); Sodium 138 mmol/L (136-145)
--- NOTE | 2019-07-18 19:33 | PC.NURSE ---
PATIENT REQUESTED ANOTHER BLANKET AND WAS GIVEN BLANKET BY NURSE
--- NOTE | 2019-07-18 20:31 | PC.NURSE ---
Report called to ICU at 1940 but the room is waiting to be cleaned and ICU said they will call me back when room in ready
--- NOTE | 2019-07-18 20:33 | PC.NURSE ---
Nurse called ICU to check on room status but room still in process of being cleaned.
--- NOTE | 2019-07-18 20:44 | PC.NURSE ---
Addendum entered by Alyssa Torres RN 07/18/19 20:45: icu called to let nurse know room is ready for patient. patient taken to icu by nurse and respiratory. Original Note: icu called to let nurse know room is ready for patient. patient taken to icu by nurse.
[2019-07-18 21:31] LABS: Amphetamines Screen Urine Negative (Negative); Barbiturates Screen Urine Negative (Negative); Benzodiazepines Screen Urine Positive (Negative); Cocaine Screen Urine Negative (Negative); Opiate Screen Urine Positive (Negative); PCP Screen Urine Negative (Negative)
[2019-07-18 21:33] LABS: THC Screen Urine Negative (Negative)
--- NOTE | 2019-07-18 22:00 | ECG_ITS ---
Measurements Intervals [place] Rate: 46 P: [place]: 0 QRS: 93 QRSD: 9 T: 137 QT: 311 QTc: 272 ATRIAL FIBRILLATION WITH SLOW VENTRICULAR RESPONSE BORDERLINE RIGHT AXIS DEVIATION [QRS AXIS > 90] LOW QRS VOLTAGE [QRS DEFLECTION < 0.5/1.0 mV IN LIMB/CHEST LEADS] POSSIBLE ANTERIOR MYOCARDIAL INFARCTION [30 ms Q WAVE IN V3/V4, OR R < 0.2 mV IN V4], PROBABLY OLD Compared to ECG 07/18/2019 16:15:41 Low QRS voltage now present Ventricular premature complex(es) no longer present Myocardial infarct finding still present Electronically Signed On 07-19-2019 16:37:26 EXCELLENCE COACH by Christian Mcdonald M.D. [id number]
[2019-07-18 22:02] LABS: Add On to Lab Order(s) Added
[2019-07-18 22:12] LABS: Troponin 5 6HR 215.8 ng/L (0-15); Troponin 5 6HR Delta -28.2 ng/L (0-12)
--- NOTE | 2019-07-18 23:00 | PC.NURSE ---
2109 rcvd pt from ed via stretcher placed on cm at this time hr 40-80s afib . pt denies pain at this time. pt alert to self and place. pt pd to be drained at 2099 . placed to drain bag at this time. large brusing noted to left abd and side , left eye has small bruise under it . sacrum noted to be red and bruised pt unable to describe why he is bruised . discussed pt c dr. cox. order for 2.5% dextrose to instil for 6 hrs and c/s cell count and gram stain rcvd. pt positioned for comfort and placed on bipap per orders at this time. aviva cruz
[2019-07-18] MEDS: sodium chloride 0.9% 1,000 ML 50 ML IV (23:31)
[2019-07-19] VITALS (29 sets, daily range): BP systolic 82–108; BP diastolic 43–80; PULSE 39–88; RESP 15–31; TEMP 36.2–36.6; O2SAT 80–99
[2019-07-19 03:27] LABS: Body Fluid WBC 38 u/L; RBC, Body Fluid 0 10^3/uL (0-0)
[2019-07-19 04:31] LABS: Apprearance, Body Fluid CLEAR (CLEAR); Color, Body Fluid COLORLESS (PALE YELLOW); PATH Referral YES
[2019-07-19 04:40] LABS: Basophils % 0.2 %; Eosinophils # 0.2 10^3/uL (0.0-0.8); Eosinophils % 2.8 %; Hematocrit 28.4 % (42.0-52.0); Hemoglobin 8.8 g/dL (11.7-16.6); Lymphocytes # 0.9 10^3/uL (0.8-4.8); Lymphocytes % 14.1 %; Mean Corpuscular Hemoglobin 34.1 pg (28.0-34.0); Mean Corpuscular Volume 110.1 fL (80-94); Mean Platelet Volume 10.4 fL (7.4-10.4); Monocytes # 0.6 10^3/uL (0.2-0.9); Monocytes % 10.1 %; Neutrophils # 4.4 10^3/uL (1.8-7.7); Nucleated Red Blood Cells % 0 %; Platelet Count 266 10^3/cmm (130-400); Red Blood Count 2.58 10^6/uL (4.1-5.3); Red Cell Distribution Width 16.5 % (12.1-15.1); White Blood Count 6.1 10^3/uL (4.0-10.0)
[2019-07-19 05:01] LABS: Anion Gap 13.4 (5-19); Blood Urea Nitrogen 32 mg/dL (8-23); Calcium 12.3 mg/dL (8.5-10.5); Carbon Dioxide 32 mmol/L (22-29); Chloride 99 mmol/L (98-107); Glucose 94 mg/dL (65-115); Magnesium 1.9 mg/dL (1.7-2.3); Osmolality Calculated 289 mOsm/kg (285-295); Potassium 3.4 mmol/L (3.5-5.1); Sodium 141 mmol/L (136-145)
--- NOTE | 2019-07-19 09:01 | XR_ITS ---
WS: [id number] Portable AP upright chest, 07/19/2019 Clinical Data: hypoxia Comparison: Portable chest, 07/18/2019 Findings: No nodules or masses are seen. The heart is slightly enlarged. The pulmonary vascularity is not increased. No pneumonia or pneumothorax is seen. There is a small left pleural effusion along wi th atelectasis unchanged. Aortic arch and descending aorta show calcification and tortuosity. Monitor leads on the chest wall. XR/XR chest 1V portable [id number] Impression: No change in left basilar atelectasis and effusion.
--- NOTE | 2019-07-19 09:02 | P.PN_ITS ---
Subjective Subjective: Interval history: He is somewhat bothered by the BiPAP mask which is on him this morning. Denies any history of EUGENIO, COPD or emphysema. Currently states that his feet are sometimes feeling warm sometimes cold. He is having frequent cough which has been worse recently, although says he has been having it for a long time. He denies any abdominal discomfort. Vitals/I&O/Wt Last Vital Signs Temp 97.6 F 07/19/19 08:19 Pulse 71 07/19/19 08:19 Resp 23 H 07/19/19 08:19 BP 99/43 07/19/19 08:19 Pulse Ox 90 07/19/19 08:19 07/18/19 07/19/19 07/19/19 22:59 06:59 14:59 Intake Total 188.333 / 188.333 50 / 50 Output Total 364 / 364 650 / 1014 0 / 0 Balance -175.667 / -175.667 -650 / -825.667 50 / 50 Weight last 48 hrs Weight 111.13 kg Physical Exam Const: COMMON NORMALS: no apparent distress and oriented x3 HENMT: COMMON NORMALS: oropharynx normal Resp: COMMON NORMALS: normal respiratory effort EFFORT & INSPECTION: Yes able to speak in complete sentences (however, he mumbles and goes on tangents, sometimes difficult to understand) AUSCULTATION: diminished lung sounds Cardio: COMMON NORMALS: regular rhythm, S1 normal heart sound, S2 normal heart sound and no murmurs RHYTHM: regular rhythm HEART SOUNDS: S1 normal and S2 normal OTHER: Not assess JVD due to thick neck. 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 Urinary Catheter Management^: Crowe: Cath Placed During This Visit: yes Urethral Indwelling: Yes Reason for Continuing Indwelling Catheter: Accurate Measurement of Urinary Output in Critically Ill Patients Urinary Catheter Date of Insertion: 07/18/19 Urinary Catheter Time of Insertion: 17:49 Data : 07/19/19 04:10 07/19/19 04:10 Micro: Microbiology 02/05/20 17:47 Blood Culture - Preliminary Blood SPECIMEN COLLECTED 07/18/19 17:46 Blood Culture - Preliminary Blood SPECIMEN COLLECTED 07/18/19 16:14 Blood Culture - Preliminary Blood SPECIMEN COLLECTED A&P Assessment and plan (1) Hypoxia: He is on BiPAP during my evaluation. He denies using CPAP at home. Denies known history of EUGENIO. Denies known history of COPD emphysema. He is a former smoker. He is bothered by persistent cough. He was kept up most of the night, unable to sleep due to coughing. On exam decreased air entry, very mild wheezing. He does not appear to be bringing up much phlegm. Suspected acute bronchitis, possible combination with undiagnosed EUGENIO, he is also former smoker, possibly with history of undiagnosed COPD. Discussed with him he may benefit from pulmonary function testing once he is out of acute episode. For now continue oxygen support. We will add breathing treatments. Collect sputum culture. Repeat chest x-ray. With history of DVT, on anticoagulation, with soft blood pressure, hypoxia, will request for assessment with TTE. Status: Acute Code(s): R09.02 - Hypoxemia (2) Bradycardia: Recurrent reported improved, however, still going down into 40s and heart rates while sleeping. Does not appear to be symptomatic at this time. With history of atrial fibrillation. TSH is normal. Continue to hold calcium channel anila. Monitor heart rates. Significant bradycardia on admission. This may be secondary to his calcium channel anila which he is on at home. Hold calcium supplementation. Hypercalcemia is gradually improving. Atropine if needed. Status: Acute Code(s): R00.1 - Bradycardia, unspecified (3) Hypercalcemia: Gradually trending down. Continue to hold supplements. Hold additional hydration due to hypoxia. Diminished air entry. Repeat chest x-ray. Status: Acute Code(s): E83.52 - Hypercalcemia (4) Acute alteration in mental status: He is currently awake and alert, able to describe his symptoms, although he mumbles, and goes off on tangents frequently, making him sometimes difficult to understand. Status: Acute Code(s): R41.82 - Altered mental status, unspecified (5) Acute hypokalemia: Monitor. Status: Acute Code(s): E87.6 - Hypokalemia (6) End-stage renal disease on peritoneal dialysis: He has no abdominal discomfort. Dialysate Gram stain and culture has been ordered by nephrology. For now is on Zosyn. Appreciate additional recommendations. Status: Acute Code(s): N18.6 - End stage renal disease; Z99.2 - Dependence on renal dialysis Additional A&P Information Troponin abnormality: He does not have any pain currently. He states he is always short of breath . He has been coughing due to suspected bronchitis. Troponin elevation may be secondary to atrial fibrillation, in the setting of ESRD. History of CAD is reported, although not see prior record of echocardiogram or stress test. Will assess currently with TTE. Continue aspirin. Continue anticoagulation. Benefit not clear from statin in case of ESRD, however, will add one for now. No beta-anila due to bradycardia. Due to hematuria for now hold off loading with Plavix. History of DVT right brachiocephalic vein. Continue Eliquis Atrial fibrillation. Anticoagulated with Eliquis History of hypertension. Holding Cardizem secondary to bradycardia Nursing facility records which indicate a past history of coronary disease. Attestations Medical Necessity Statement*: Continue admission for assessment and management of hypoxia, bradycardia, hypercalcemia, troponin abnormality. Coding Level of Care Code Acute Shared Services Manager for [facility] Diagnoses Hypoxia R09.02 Bradycardia R00.1 Hypercalcemia E83.52 Acute alteration in mental status R41.82 Acute hypokalemia E87.6 End-stage renal disease on peritoneal dialysis N18.6; Z99.2
--- NOTE | 2019-07-19 09:12 | USCV_ITS ---
Madhavi Ramirez Age: 78 Gender: M : 1940 Exam Date: 07/19/2019 09:41 Ordering Phys: Rudi Bailey MD Technologist: Silvio De León Exam Location: [facility] [place] Indication: AMS LOW HEART RATE BP: 94 / 48 HR: 42 Rhythm: Sinus Technical Quality: Poor because of body habitus MEASUREMENTS (Male / Female) Normal Values 2D ECHO LV Diastolic Diameter PLAX 5.0 cm 4.2 - 5.9 / 3.9 - 5.3 cm LV Systolic Diameter PLAX 3.8 cm IVS Diastolic Thickness 1.1 cm 0.6 - 1.0 / 0.6 - 0.9 cm IVS Systolic Thickness 1.4 cm LVPW Diastolic Thickness 1.0 cm 0.6 - 1.0 / 0.6 - 0.9 cm LVPW Systolic Thickness 1.4 cm LVOT Diameter 2.3 cm LV Ejection Fraction 2D Teich 48.9 % LV Ejection Fraction MOD 2C 66.3 % LV Ejection Fraction 2C AL 67.0 % LA Diameter 5.3 cm LA Width 5.8 cm LA Height 7.3 cm RA Width 5.5 cm RA Height 6.5 cm Aorta at Sinotubular Diameter 3.0 cm M-MODE LV Diastolic Diameter MM 6.8 cm 4.2 - 5.9 / 3.9 - 5.3 cm LV Systolic Diameter MM 4.9 cm LV Ejection Fraction MM Teich 53.0 % IVS Diastolic Thickness MM 1.2 cm 0.6 - 1.0 / 0.6 - 0.9 cm IVS Systolic Thickness MM 1.8 cm LVPW Diastolic Thickness MM 1.3 cm 0.6 - 1.0 / 0.6 - 0.9 cm LVPW Systolic Thickness MM 2.0 cm RV Diastolic Diameter MM 2.6 cm Aortic Annulus Diameter 4.3 cm LA Ao Ratio MM 1.3 MV E Point Septal Separation 2.1 cm DOPPLER AV Peak Velocity 119.0 cm/s LVOT Peak Velocity 72.0 cm/s AV Area Cont Eq vti 3.1 cm squared AV Area Cont Eq pk 2.5 cm squared MV Area PHT 5.0 cm squared Mitral E to A Ratio 1.7 MV E' Velocity 13.0 cm/s Mitral E to MV E' Ratio 8.8 Mitral E to LV E' Lateral Ratio 6.6 Mitral E to LV E' Septal Ratio 13.4 TR Peak Velocity 293.0 cm/s TR Peak Gradient 34.4 mmHg TV Peak E Velocity 119.0 cm/s Right Atrial Pressure 3.0 mmHg Pulmonary Artery Systolic Pressu 37.3 mmHg FINDINGS Left Ventricle Normal left ventricular cavity size. Normal left ventricular systolic function. No regional wall motion abnormalities. Left ventricular ejection fraction is estimated at 55 %. Grade I/IV diastolic dysfunction (abnormal relaxation filling pattern), normal to mildly elevated filling pressures. Right Ventricle The right ventricle is normal in size and function. Mild pulmonary hypertension, RVSP 37.3 mmHg. Right Atrium The right atrium is normal in size. Left Atrium The left atrium is normal in size. Mitral Valve Moderately thickened mitral valve. Mitral annular calcification. No mitral valve stenosis. No mitral valve regurgitation. Aortic Valve Moderate aortic valve calcification. No aortic valve stenosis. No aortic valve regurgitation. Tricuspid Valve Mild tricuspid valve regurgitation. Pulmonic Valve Structurally normal pulmonic valve without significant stenosis. There is no pulmonic regurgitation. Pericardium Normal pericardium without effusion. Aorta Normal ascending aorta dimension. CONCLUSIONS 1-Normal left ventricular cavity size. Normal left ventricular systolic function. No regional wall motion abnormalities. Left ventricular ejection fraction is estimated at 55 %. Grade I/IV diastolic dysfunction (abnormal relaxation filling pattern), normal to mildly elevated filling pressures. 2-The right ventricle is normal in size and function. Mild pulmonary hypertension, RVSP 37.3 mmHg. 3-Moderate aortic valve calcification. No aortic valve stenosis. No aortic valve regurgitation. 4-Moderately thickened mitral valve. Mitral annular calcification. No mitral valve stenosis. No mitral valve regurgitation. 5-Mild tricuspid valve regurgitation. 6-There is no pericardial effusion. 7-Right atrial pressure is around 5 mm of mercury. 8-There are no prior echocardiogram studies to compare. Jenni Haro MD (Electronically Signed) Final Date: 19 July 2019 17:12 S
[2019-07-19] MEDS: apixaban 5 mg Tablet 2.5 MG PO ×2 (09:45→18:13)
[2019-07-19] MEDS: tamsulosin 0.4 mg Capsule 0.8 MG PO (09:45)
[2019-07-19] MEDS: aspirin 81 mg EC Tablet PO (09:45)
[2019-07-19] MEDS: atorvastatin 40 mg Tablet PO (09:46)
[2019-07-19] MEDS: benzonatate 100 mg Capsule PO ×2 (09:46→15:21)
[2019-07-19] MEDS: docusate sodium 100 mg Capsule PO ×2 (09:46→18:13)
[2019-07-19] MEDS: finasteride 5 mg Tablet PO (09:46)
--- NOTE | 2019-07-19 11:49 | PC.CHAP ---
Pastoral Care Encounter/Spiritual Assessment Type of Contact [] Declined soda flaker visit [] Patient/Family/Request visit [] Outpatient visit [] Follow-up visit [] Physician referral [] Code/Alert [] Routine visit [] Staff referral [] Actively dying [] Patient sleeping [] Family support [] [] Out of room [] Palliative care [] [] Receiving care in room [] Pre-surgical visit [] Trauma [] Long length of stay [] ICU visit [x] Other:Patient unconscious Relational/Emotional Strength [] Patient feels connected with others/family/visitors/staff [] Distress [] Loneliness/isolation [] Abandonment Spirituality of Patient [] Person of Erica [] Attends Druze of their Erica [] Believes in Prayer [] Reads Bible or Yazidi materials [] There are Spiritual issues to be addressed Hospital Technician Interventions [x] Prayer [] Active listening [] Non-anxious presence [] Spiritual/emotional support [] Crisis/trauma care [] Spiritual counseling [] Bereavement support [] Provided bereavement packet [] Provided Bible/devotional materials [] Provided toy/stuffed animal, coloring book to patient or family member [] Provided Communion [] Anointing/[place] [] Salvation [] Completed spiritual assessment [] Other: Impact on Illness or Injury [] Angry [] Fearful [] Anxious [] Often cries [] Exhaustion [] Unable to work [] Unable to attend pentecostal [] Unable to walk/stand [] Unable to read [] Unable to drive [] Unable to eat/drink [] Unable to sleep [] Unable to be with family [] Patient intubated [] Other: Summary Time spent with patient 2 minutes
--- NOTE | 2019-07-19 13:35 | PM.PN ---
Subjective Subjective: Interval history: Thank you for consultation. Today I had the pleasure of reviewing this 70-year-old gentleman. He presented to our facility with lethargy. He was found to be quite profoundly bradycardic. This is attributed to his use of home medication that includes diltiazem. He has been on peritoneal dialysis although the historic details of his past history was an unclear, as he's not certain about these details. Following hospitalization we have used 2 L, 2.5% solution every 6 hours. This is comfortable for him and is going well. PD fluid was sent down to the lab for analysis and no cells were found. Since stopping his diltiazem his HR has now improved. He has a persistent dry cough. No fever, chills. Mild peripheral edema and no uremic Sx Vitals/I&O/Wt Last Vital Signs Temp 97.6 F 07/19/19 08:19 Pulse 71 07/19/19 08:19 Resp 23 H 07/19/19 08:19 BP 99/43 07/19/19 08:19 Pulse Ox 90 07/19/19 08:19 07/18/19 07/19/19 07/19/19 22:59 06:59 14:59 Intake Total 188.333 / 188.333 50 / 50 Output Total 364 / 364 650 / 1014 0 / 0 Balance -175.667 / -175.667 -650 / -825.667 50 / 50 Weight last 48 hrs Weight 111.13 kg Physical Exam Const: COMMON NORMALS: no apparent distress, average body habitus and oriented x3 HENMT: COMMON NORMALS: normocephalic and head/scalp atraumatic HEAD & SCALP: normocephalic and atraumatic Chest: COMMONS NORMALS: inspection of chest normal and palpation of chest normal Resp: COMMON NORMALS: normal respiratory effort and no retractions GI: COMMON NORMALS: normal to inspection, nondistended, normoactive bowel sounds (healthy exit site ) : COMMON NORMALS: Yes no CVA tenderness and Yes external exam normal BLADDER/KIDNEY EXAM: Yes no CVA tenderness Back/Pelvis: COMMON NORMALS: no CVA tenderness Neuro: COMMON NORMALS: oriented x3 and CN's II-XII intact bilaterally Urinary Catheter Management^: Crowe: Cath Placed During This Visit: yes Urethral Indwelling: Yes Reason for Continuing Indwelling Catheter: Accurate Measurement of Urinary Output in Critically Ill Patients Urinary Catheter Date of Insertion: 07/18/19 Urinary Catheter Time of Insertion: 17:49 Data : 07/19/19 04:10 07/19/19 04:10 Micro: Microbiology 07/18/19 17:47 Blood Culture - Preliminary Blood SPECIMEN COLLECTED 07/18/19 17:46 Blood Culture - Preliminary Blood SPECIMEN COLLECTED 07/18/19 16:14 Blood Culture - Preliminary Blood SPECIMEN COLLECTED A&P Additional A&P Information 1. End stage kidney disease on peritoneal dialysis. 2 L, 2.5% solution every 6 hours Strict Is and Os 2. Bradycardia appears to be secondary to diltiazem, heart is now improving without it. 3. Weakness. Seems be secondary to his bradycardia. Will need physical and occupational therapy during his hospital stay. 4. Anemia. If he stays for more than a few days I will give him iron and EPOGEN. Otherwise defer to the outpatient dialysis unit. 5. Bone metabolism of end-stage kidney disease. Continue outpatient binder therapy. No need to follow phosphorus or parathyroid levels in the hospital at this time. Attestations Medical Necessity Statement*: mgmt of ESRD Coding Level of Care Code Acute Founding Partner for Jessy Thurman
[2019-07-19] MEDS: Dianeal low Ca w/2.5% dex 2,000 mL Bag 2000 ML INTRAPERIT ×2 (13:53→20:54)
--- NOTE | 2019-07-19 13:53 | PC.NURSE ---
Patient connected for drainage of PD fluid. Handwashing & mask per protocol.
[2019-07-19] MEDS: ipratropium-albuterol 3 mL Neb INHALATION ×2 (14:00→20:43)
--- NOTE | 2019-07-19 15:24 | PC.NURSE ---
Dialysate fully drained with 2000gm drained between 1345 - 1515, requiring 3 position changes (rolling side ti side). Infusion of 2000ml green bag started at 1515
--- NOTE | 2019-07-19 19:07 | PC.NURSE ---
bedside report rcvd at this time vss per cm. pt resting in bed eyes closed even non labored respirations. a fib per cm rate 50's . per off going nurse pd to be drained at 2100 . no s/s of distress noted. aviva cruz.
--- NOTE | 2019-07-19 19:51 | PC.NURSE ---
assisted pt to side of bed for dinner at this time. pt agitated because he wasn't woke up at dinner time. pt refuses to sit in bed and requests sitting on side of bed. aviva cruz.
[2019-07-19] MEDS: budesonide 0.5 mg/2 mL Neb 0.25 MG INHALATION (20:43)
--- NOTE | 2019-07-19 21:38 | PC.NURSE ---
2130 2.5 dextrose instilled in pd cath. pt tolerated s co pain. 2200 cc return from previous. aviva cruz.
[2019-07-20] VITALS (21 sets, daily range): BP systolic 85–127; BP diastolic 43–65; PULSE 68–105; RESP 16–29; TEMP 36.3–36.9; O2SAT 84–100
[2019-07-20] MEDS: ipratropium-albuterol 3 mL Neb INHALATION ×4 (02:39→20:28)
[2019-07-20] MEDS: Dianeal low Ca w/2.5% dex 2,000 mL Bag 2000 ML INTRAPERIT ×2 (03:23→16:30)
--- NOTE | 2019-07-20 04:07 | PC.NURSE ---
per rt pt refuses to weas oxy mask , pt refuses bipap also . spo2 87 on nc at this time. pt educated and continues to refuse proper o2 . aviva cruz.
--- NOTE | 2019-07-20 04:09 | PC.RESP ---
pt refusing to leave oxymask on. Pt removing mask after staff leave room several times. Educated on reason for o2 placed pt back on 6lm nc. pt refusing bipap
[2019-07-20 05:18] LABS: Basophils % 0.3 %; Eosinophils # 0.1 10^3/uL (0.0-0.8); Eosinophils % 1.4 %; Hematocrit 28.1 % (42.0-52.0); Hemoglobin 8.6 g/dL (11.7-16.6); Lymphocytes # 0.9 10^3/uL (0.8-4.8); Mean Corpuscular HGB Conc 30.6 g/dL (30.0-36.0); Mean Corpuscular Hemoglobin 34.4 pg (28.0-34.0); Mean Corpuscular Volume 112.4 fL (80-94); Mean Platelet Volume 10.1 fL (7.4-10.4); Monocytes # 0.6 10^3/uL (0.2-0.9); Monocytes % 8.6 %; Neutrophils % 75.6 %; Nucleated Red Blood Cells % 0 %; Platelet Count 275 10^3/cmm (130-400); Red Cell Distribution Width 17.1 % (12.1-15.1); White Blood Count 6.6 10^3/uL (4.0-10.0)
[2019-07-20 05:30] LABS: Anion Gap 13.8 (5-19); Blood Urea Nitrogen 37 mg/dL (8-23); Calcium 11.1 mg/dL (8.5-10.5); Carbon Dioxide 32 mmol/L (22-29); Chloride 98 mmol/L (98-107); Glucose 130 mg/dL (65-115); Osmolality Calculated 291 mOsm/kg (285-295); Sodium 141 mmol/L (136-145)
[2019-07-20 05:41] LABS: Potassium 2.8 mmol/L (3.5-5.1)
--- NOTE | 2019-07-20 05:56 | PC.NURSE ---
notified dr styles k+ 2.8 will allow nephrology to address when seen this am.
[2019-07-20] MEDS: budesonide 0.5 mg/2 mL Neb 0.25 MG INHALATION ×2 (08:37→20:27)
[2019-07-20] MEDS: polyethylene glycol 3350 Pkt 17 gm PO (09:38)
[2019-07-20] MEDS: docusate sodium 100 mg Capsule PO (09:38)
[2019-07-20] MEDS: apixaban 5 mg Tablet 2.5 MG PO ×2 (09:38→19:08)
[2019-07-20] MEDS: benzonatate 100 mg Capsule PO ×2 (09:38→14:42)
[2019-07-20] MEDS: aspirin 81 mg EC Tablet PO (09:38)
[2019-07-20] MEDS: lactulose oral liq 20 gm/30 mL UDC 30 GM PO (09:38)
[2019-07-20] MEDS: atorvastatin 40 mg Tablet PO (09:38)
[2019-07-20] MEDS: finasteride 5 mg Tablet PO (09:38)
--- NOTE | 2019-07-20 11:36 | FL_ITS ---
WS: [id number] MODIFIED BARIUM SWALLOW HISTORY: Oropharyngeal dysphagia FLUOROSCOPY TIME: 1.5 minutes. Modified barium swallow was performed by the speech pathologist. Fluoroscopy was provided with the pa tient in a lateral projection. Multiple food consistencies were provided. Patient swallowed the food consistencies without too much difficulty. No aspiration was evident. Ther e were a few episodes of laryngeal penetration. Barium tablet was swallowed without difficulty. FL/FL barium swallow modifd [id number] IMPRESSION: 1. No significant swallowing deficiency's. 2. No aspiration. Please see speech therapist report also for recommendations.
--- NOTE | 2019-07-20 14:33 | PM.PN ---
Subjective Subjective: Interval history: He feels ok, very weak, hard of hearing. Following hospitalization we have used 2 L, 2.5% solution every 6 hours. This is comfortable for him and is going well. PD fluid was sent down to the lab for analysis and no cells were found. Since stopping his diltiazem his HR has now improved. He has a persistent dry cough. No fever, chills. Mild peripheral edema and no uremic Sx Vitals/I&O/Wt Last Vital Signs Temp 98.4 F 07/20/19 07:30 Pulse 98 07/20/19 14:32 Resp 18 07/20/19 14:32 BP 94/59 07/20/19 08:00 Pulse Ox 96 07/20/19 14:32 07/19/19 07/20/19 07/20/19 22:59 06:59 14:59 Intake Total 2460 / 6730 Output Total 4400 / 9980 Balance -1940 / -3250 Weight last 48 hrs Weight 111.13 kg Physical Exam Const: COMMON NORMALS: no apparent distress, average body habitus and oriented x3 HENMT: COMMON NORMALS: normocephalic and head/scalp atraumatic HEAD & SCALP: normocephalic and atraumatic Chest: COMMONS NORMALS: inspection of chest normal and palpation of chest normal Resp: COMMON NORMALS: normal respiratory effort and no retractions GI: COMMON NORMALS: normal to inspection, nondistended, normoactive bowel sounds (healthy exit site ) : COMMON NORMALS: Yes no CVA tenderness and Yes external exam normal BLADDER/KIDNEY EXAM: Yes no CVA tenderness Back/Pelvis: COMMON NORMALS: no CVA tenderness Neuro: COMMON NORMALS: oriented x3 and CN's II-XII intact bilaterally Urinary Catheter Management^: Crowe: Cath Placed During This Visit: yes Urethral Indwelling: Yes Reason for Continuing Indwelling Catheter: Accurate Measurement of Urinary Output in Critically Ill Patients Urinary Catheter Date of Insertion: 07/18/19 Urinary Catheter Time of Insertion: 17:49 Data : 07/20/19 04:33 07/20/19 04:33 Micro: Microbiology 07/18/19 23:00 Dialysis Fluid Culture - Preliminary Dialysis Fluid 07/18/19 17:47 Blood Culture - Preliminary Blood NEGATIVE TO DATE 07/18/19 17:46 Blood Culture - Preliminary Blood NEGATIVE TO DATE 07/18/19 16:14 Blood Culture - Preliminary Blood NEGATIVE TO DATE 07/18/19 23:00 Gram Stain - Final Abdominal Fluid A&P Additional A&P Information 1. End stage kidney disease on peritoneal dialysis. 2 L, 2.5% solution every 6 hours Strict Is and Os 2. Bradycardia appears to be secondary to diltiazem, heart is now improving without it. 3. Weakness. Seems be secondary to his bradycardia. Will need physical and occupational therapy during his hospital stay. 4. Anemia. If he stays for more than a few days I will give him iron and EPOGEN. Otherwise defer to the outpatient dialysis unit. 5. Bone metabolism of end-stage kidney disease. Continue outpatient binder therapy. No need to follow phosphorus or parathyroid levels in the hospital at this time. 6. HypoK - 40mEq BID x 4 Attestations Medical Necessity Statement*: mgmt of ESRD on PD Coding Level of Care Code Acute Natural Science Manager for Jessy Thurman
--- NOTE | 2019-07-20 16:03 | PC.CHAP ---
Pastoral Care Encounter/Spiritual Assessment Type of Contact [] Declined wind development director visit [] Patient/Family/Request visit [] Outpatient visit [] Follow-up visit [] Physician referral [] Code/Alert [] Routine visit [] Staff referral [] Actively dying [] Patient sleeping [] Family support [] [] Out of room [] Palliative care [] [x] Receiving care in room [] Pre-surgical visit [] Trauma [] Long length of stay [] ICU visit [] Other: Follow up visit needed Relational/Emotional Strength [] Patient feels connected with others/family/visitors/staff [] Distress [] Loneliness/isolation [] Abandonment Spirituality of Patient [] Person of Erica [] Attends Muslim of their Erica [] Believes in Prayer [] Reads Bible or Scientology materials [] There are Spiritual issues to be addressed Boxer Operator Interventions [] Prayer [] Active listening [] Non-anxious presence [] Spiritual/emotional support [] Crisis/trauma care [] Spiritual counseling [] Bereavement support [] Provided bereavement packet [] Provided Bible/devotional materials [] Provided toy/stuffed animal, coloring book to patient or family member [] Provided Communion [] Anointing/[place] [] Salvation [] Completed spiritual assessment [] Other: Impact on Illness or Injury [] Angry [] Fearful [] Anxious [] Often cries [] Exhaustion [] Unable to work [] Unable to attend zoroastrian [] Unable to walk/stand [] Unable to read [] Unable to drive [] Unable to eat/drink [] Unable to sleep [] Unable to be with family [] Patient intubated [] Other: Summary Follow up visit needed. [facility] extended period of time. No wind development director visit conducted. Boxer Operator Ximena Odom Time spent with patient 2 minutes
--- NOTE | 2019-07-20 16:30 | PC.NURSE ---
Peritoneal dialysis site cleansed with cholrehexidine swab. Dressing changes. No redness, swelling, drainage, or scabs noted at site
--- NOTE | 2019-07-20 18:38 | PM.PN ---
Subjective Subjective: Interval history: Complains of his mouth feeling dry. He was sleeping at beginning of my visit, after waking up somewhat confused, thinking the year was 2000, not remembering where he was. Corrected himself to being in [facility]. Vitals/I&O/Wt Last Vital Signs Temp 98.4 F 07/20/19 07:30 Pulse 74 07/20/19 16:30 Resp 25 H 07/20/19 16:30 BP 101/56 07/20/19 16:00 Pulse Ox 96 07/20/19 14:32 Weight last 48 hrs Weight 111.13 kg Physical Exam Const: COMMON NORMALS: no apparent distress and oriented x3 HENMT: COMMON NORMALS: oropharynx normal Resp: COMMON NORMALS: normal respiratory effort EFFORT & INSPECTION: Yes able to speak in complete sentences (however, he mumbles and goes on tangents, sometimes difficult to understand) AUSCULTATION: diminished lung sounds Cardio: COMMON NORMALS: regular rhythm, S1 normal heart sound, S2 normal heart sound and no murmurs RHYTHM: regular rhythm HEART SOUNDS: S1 normal and S2 normal OTHER: Not assess JVD due to thick neck. 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 Urinary Catheter Management^: Crowe: Cath Placed During This Visit: yes Urethral Indwelling: Yes Reason for Continuing Indwelling Catheter: Accurate Measurement of Urinary Output in Critically Ill Patients Urinary Catheter Date of Insertion: 07/18/19 Urinary Catheter Time of Insertion: 17:49 Data : 07/20/19 04:33 07/20/19 04:33 Micro: Microbiology 07/18/19 17:51 Urine Culture - Final Urine,Clean Catch 07/18/19 23:00 Dialysis Fluid Culture - Preliminary Dialysis Fluid 07/18/19 17:47 Blood Culture - Preliminary Blood NEGATIVE TO DATE 07/18/19 17:46 Blood Culture - Preliminary Blood NEGATIVE TO DATE 07/18/19 16:14 Blood Culture - Preliminary Blood NEGATIVE TO DATE 07/18/19 23:00 Gram Stain - Final Abdominal Fluid A&P Assessment and plan (1) Hypotension: Blood pressures persistently soft. Not on any blood pressure medications. Does take Flomax. Change dose to 0.4 mg twice daily instead of 0.8 mg daily. TSH was checked and is normal. TTE with normal EF. We will request for morning serum cortisol. Discussed with nephrology as he does appear slightly dry, whether dehydration is possibility with current dialysate. We will give him a 200 mL albumin bolus, monitor response. Status: Acute Code(s): I95.9 - Hypotension, unspecified (2) Hypoxia: On 6LPM NC. He denies using CPAP at home. Denies known history of EUGENIO. Denies known history of COPD emphysema. He is a former smoker. He is bothered by persistent cough. He was kept up most of the night, unable to sleep due to coughing. On exam decreased air entry, very mild wheezing. He does not appear to be bringing up much phlegm. Suspected acute bronchitis, possible combination with undiagnosed EUGENIO, he is also former smoker, possibly with history of undiagnosed COPD. Discussed with him he may benefit from pulmonary function testing once he is out of acute episode. For now continue oxygen support. On chest x-ray also with fairly sizable atelectasis. Have requested for chest PT. Mucomyst inhalation. Will reassess chest x-ray in the morning. Collect sputum culture. Repeat chest x-ray. With history of DVT, on anticoagulation, with soft blood pressure. TTE with normal EF, no signs of right heart strain. Appears to have perhaps mild pulmonary hypertension. Status: Acute Code(s): R09.02 - Hypoxemia (3) Bradycardia: Has been improving with Cardizem held. With history of atrial fibrillation. TSH is normal. Continue to hold calcium channel anila. Monitor heart rates. Significant bradycardia on admission. This may be secondary to his calcium channel anila which he is on at home. Status: Acute Code(s): R00.1 - Bradycardia, unspecified (4) Hypercalcemia: Gradually trending down. Continue to hold supplements. Hold additional hydration due to hypoxia. Diminished air entry. Repeat chest x-ray. Status: Acute Code(s): E83.52 - Hypercalcemia (5) Acute alteration in mental status: He is currently awake and alert, able to describe his symptoms, although he mumbles, and goes off on tangents frequently, making him sometimes difficult to understand. This appears may be waxing waning. He was slightly confused after waking up, although did correct himself. Continue to monitor mental status. His calcium has been improving. Continue peritoneal dialysis. Status: Acute Code(s): R41.82 - Altered mental status, unspecified (6) Acute hypokalemia: Monitor. Status: Acute Code(s): E87.6 - Hypokalemia (7) End-stage renal disease on peritoneal dialysis: He has no abdominal discomfort. Dialysate Gram stain and culture has been ordered by nephrology. Not suspicious of peritonitis. Off Zosyn. Appreciate additional recommendations. Status: Acute Code(s): N18.6 - End stage renal disease; Z99.2 - Dependence on renal dialysis Additional A&P Information Troponin abnormality: He does not have any pain currently. He states he is always short of breath . He has been coughing due to suspected bronchitis. Troponin elevation may be secondary to atrial fibrillation, in the setting of ESRD. History of CAD is reported, although not see prior record of echocardiogram or stress test. Will assess currently with TTE. Continue aspirin. Continue anticoagulation. Benefit not clear from statin in case of ESRD, however, will add one for now. No beta-anila due to bradycardia. Due to hematuria for now hold off loading with Plavix. History of DVT right brachiocephalic vein. Continue Eliquis Atrial fibrillation. Anticoagulated with Eliquis History of hypertension. Holding Cardizem secondary to bradycardia Nursing facility records which indicate a past history of coronary disease. Attestations Medical Necessity Statement*: Continue admission for assessment and management of hypotension, resolving bradycardia, hypoxia and gentleman with ESRD. Coding Level of Care Code Acute Carroting Machine Offbearer for [facility] Diagnoses Hypotension I95.9 Hypoxia R09.02 Bradycardia R00.1 Hypercalcemia E83.52 Acute alteration in mental status R41.82 Acute hypokalemia E87.6 End-stage renal disease on peritoneal dialysis N18.6; Z99.2
[2019-07-20] MEDS: tamsulosin 0.4 mg Capsule PO (19:11)
[2019-07-21] VITALS (15 sets, daily range): BP systolic 96–135; BP diastolic 43–85; PULSE 72–105; RESP 16–21; TEMP 36.4–36.9; O2SAT 90–99
--- NOTE | 2019-07-21 00:32 | PC.NURSE ---
Dialysate drain time [id number] received 2600 clear pale yellow fluid. 2000ml instill from [id number] of low genet 2.5% dextrose. Pt tolerated well.
[2019-07-21] MEDS: ipratropium-albuterol 3 mL Neb INHALATION ×4 (02:39→20:12)
--- NOTE | 2019-07-21 03:01 | PC.NURSE ---
Report called to JOVANNI Lugo on medsurg, pt transferred to room 254-2 by bed and oxygen at 6L NC.
--- NOTE | 2019-07-21 06:00 | XR_ITS ---
WS: [id number] ONE VIEW CHEST HISTORY: 78 years old Male with Hypoxia AP upright chest comparison 07/19/2019 FINDINGS: Interval right lower lung zone atelectasis and/or consolidation. Slight increased left lower lung zon e opacification. No pneumothorax or definite right pleural effusion. Cardiomegaly unchanged. Pulmonar y vascular markings are marked. Thoracic aorta atherosclerosis. No subdiaphragmatic free air seen. Th oracic kyphosis. XR/XR chest 1V portable [id number] IMPRESSION: 1. Interval right lower lung zone subsegmental atelectasis and/or pneumonia. 2. Slight increased left lower lung zone opacity may be combination of pleural effusion, possibly subpulmonic, and pneumonia or atelectasis.
[2019-07-21 06:17] LABS: Basophils % 0.3 %; Eosinophils # 0.1 10^3/uL (0.0-0.8); Eosinophils % 2.1 %; Hematocrit 25.1 % (42.0-52.0); Hemoglobin 7.7 g/dL (11.7-16.6); Lymphocytes # 0.8 10^3/uL (0.8-4.8); Mean Corpuscular HGB Conc 30.7 g/dL (30.0-36.0); Mean Corpuscular Hemoglobin 33.3 pg (28.0-34.0); Mean Corpuscular Volume 108.7 fL (80-94); Mean Platelet Volume 10.2 fL (7.4-10.4); Monocytes # 0.6 10^3/uL (0.2-0.9); Monocytes % 9.5 %; Neutrophils # 4.2 10^3/uL (1.8-7.7); Neutrophils % 72.7 %; Nucleated Red Blood Cells % 0 %; Platelet Count 273 10^3/cmm (130-400); Red Blood Count 2.31 10^6/uL (4.1-5.3); Red Cell Distribution Width 17.2 % (12.1-15.1); White Blood Count 5.8 10^3/uL (4.0-10.0)
[2019-07-21] MEDS: Dianeal low Ca w/2.5% dex 2,000 mL Bag 2000 ML INTRAPERIT ×3 (06:39→21:41)
[2019-07-21 06:44] LABS: Alanine Aminotransferase 8 U/L (0-41); Albumin Level 3.2 g/dL (3.5-5.2); Alkaline Phosphatase 48 IU/L (40-130); Anion Gap 14.3 (5-19); Aspartate Amino Transferase 16 U/L (0-40); Blood Urea Nitrogen 36 mg/dL (8-23); Calcium 10.5 mg/dL (8.5-10.5); Carbon Dioxide 31 mmol/L (22-29); Chloride 99 mmol/L (98-107); Globulin 2.7 g/dL (1.3-4.6); Glucose 89 mg/dL (65-115); Potassium 3.3 mmol/L (3.5-5.1); Sodium 141 mmol/L (136-145); Total Bilirubin 0.4 mg/dL (0.15-1.2); Total Protein 5.9 g/dL (6.6-8.7)
[2019-07-21] MEDS: tamsulosin 0.4 mg Capsule PO ×2 (07:59→17:52)
[2019-07-21] MEDS: apixaban 5 mg Tablet 2.5 MG PO (08:00)
[2019-07-21] MEDS: atorvastatin 40 mg Tablet PO (08:00)
[2019-07-21] MEDS: aspirin 81 mg EC Tablet PO (08:00)
[2019-07-21] MEDS: finasteride 5 mg Tablet PO (08:01)
[2019-07-21] MEDS: docusate sodium 100 mg Capsule PO ×2 (08:01→17:52)
[2019-07-21] MEDS: lactulose oral liq 20 gm/30 mL UDC 30 GM PO ×2 (08:01→17:52)
[2019-07-21] MEDS: polyethylene glycol 3350 Pkt 17 gm PO (08:02)
[2019-07-21] MEDS: budesonide 0.5 mg/2 mL Neb 0.25 MG INHALATION ×2 (08:58→20:12)
[2019-07-21] MEDS: heparin drip 25,000 UNIT/500 ML PREMIX 32 UNIT IV (09:11)
[2019-07-21] MEDS: heparin 5,000 unit/mL INJ 1 mL IV (09:13)
--- NOTE | 2019-07-21 10:32 | P.PN_ITS ---
Subjective Subjective: Interval history: PD is going well. Hemodynamics remain soft. He has mild edema in the legs. Persistent cough, hard of hearing. Hemodynamics remain stable Vitals/I&O/Wt Last Vital Signs Temp 98.3 F 07/21/19 08:00 Pulse 72 07/21/19 09:09 Resp 18 07/21/19 08:59 BP 113/58 07/21/19 08:00 Pulse Ox 91 07/21/19 08:59 07/20/19 07/21/19 07/21/19 22:59 06:59 14:59 Intake Total 860 / 1860 240 / 2100 30 / 30 Balance 860 / 1860 240 / 2100 30 / 30 Weight last 48 hrs Weight 111.13 kg Physical Exam Const: COMMON NORMALS: no apparent distress, average body habitus and oriented x3 HENMT: COMMON NORMALS: normocephalic and head/scalp atraumatic HEAD & SCALP: normocephalic and atraumatic Chest: COMMONS NORMALS: inspection of chest normal and palpation of chest normal Resp: COMMON NORMALS: normal respiratory effort and no retractions GI: COMMON NORMALS: normal to inspection, nondistended, normoactive bowel sounds (healthy exit site ) : COMMON NORMALS: Yes no CVA tenderness and Yes external exam normal BLADDER/KIDNEY EXAM: Yes no CVA tenderness Back/Pelvis: COMMON NORMALS: no CVA tenderness Neuro: COMMON NORMALS: oriented x3 and CN's II-XII intact bilaterally Urinary Catheter Management^: Crowe: Cath Placed During This Visit: yes Urethral Indwelling: Yes Reason for Continuing Indwelling Catheter: Acute Urinary Retention or Obstruction Urinary Catheter Date of Insertion: 07/18/19 Urinary Catheter Time of Insertion: 17:49 Data : 07/21/19 05:45 07/21/19 05:45 Micro: Microbiology 07/18/19 17:51 Urine Culture - Final Urine,Clean Catch 07/18/19 23:00 Dialysis Fluid Culture - Preliminary Dialysis Fluid A&P Additional A&P Information 1. End stage kidney disease on peritoneal dialysis. 2 L, 2.5%/1.5% alternating solution every 6 hours Strict Is and Os 2. Bradycardia and hemodynamics appears to be secondary to diltiazem, heart is now improving without it. random ab pending for today Will change to 1.5%/2.5% solution alternating to pull off less volume 3. Weakness. Seems be secondary to his bradycardia. Will need physical and occupational therapy during his hospital stay. 4. Anemia. If he stays for more than a few days I will give him iron and EPOGEN. Otherwise defer to the outpatient dialysis unit. 5. Bone metabolism of end-stage kidney disease. Continue outpatient binder therapy. No need to follow phosphorus or parathyroid levels in the hospital at this time. 6. HypoK - improving - 40mEq BID x 4 to complete this evening Attestations Medical Necessity Statement*: eval and mgmt of ESRD Coding Level of Care Code Acute Business Management Specialist for Jessy Thurman
--- NOTE | 2019-07-21 11:00 | PC.SOCIAL ---
IMM Page 2 of IMM explained to and signed by patient. He verbalizes understanding. Initialed, dated, and timed and placed in chart. Copy provided to patient.
[2019-07-21 11:54] LABS: Cortisol Random 10.49 mcg/dL (2.47-19.5)
[2019-07-21] MEDS: Dianeal low Ca w/1.5% dex 2,000 mL Bag 2000 ML INTRAPERIT (15:48)
[2019-07-21 16:22] LABS: Partial Thromboplastin Time 222.9 SECONDS (23.9-36.7)
--- NOTE | 2019-07-21 18:48 | PC.NURSE ---
Dr. Bailey notified of critical ptt at 1655, who stated to hold the infusion for now. at 1830 Dr. Bailey called this nurse and he ordered at stat aptt draw and to start patient back on heparin drip at 27mL/hr. If aptt was okay then leave the infusion at 27mL/ hr, if aptt was high hold until next recheck at 2245. Will pass on to next nurse
[2019-07-21 19:25] LABS: Partial Thromboplastin Time 58.8 SECONDS (23.9-36.7)
--- NOTE | 2019-07-21 19:46 | PM.PN ---
Subjective Subjective: Interval history: States that he was working with someone to try to get out of bed, however, he is used to getting out toward his left side, worse currently left side of his bed is by the window. There is space there, but not as much as he would like. Vitals/I&O/Wt Last Vital Signs Temp 98.4 F 07/21/19 16:00 Pulse 105 H 07/21/19 16:00 Resp 16 07/21/19 16:00 BP 123/78 07/21/19 16:00 Pulse Ox 92 07/21/19 16:00 07/21/19 07/21/19 07/21/19 06:59 14:59 22:59 Intake Total 240 / 2100 630 / 630 240 / 870 Balance 240 / 2100 630 / 630 240 / 870 Weight last 48 hrs Weight 111.13 kg Physical Exam Const: COMMON NORMALS: no apparent distress and oriented x3 HENMT: COMMON NORMALS: oropharynx normal Resp: COMMON NORMALS: normal respiratory effort EFFORT & INSPECTION: Yes able to speak in complete sentences (goes on tangents) AUSCULTATION: diminished lung sounds Cardio: COMMON NORMALS: regular rhythm, S1 normal heart sound, S2 normal heart sound and no murmurs RHYTHM: regular rhythm HEART SOUNDS: S1 normal and S2 normal OTHER: Not assess JVD due to thick neck. 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 May have component of adrenal urgency, however, for now hold off on stress steroids Dialysate will try to be alternated by nephrology. Not on any blood pressure medications. Does take Flomax. Changed dose to 0.4 mg twice daily instead of 0.8 mg daily. TSH normal. TTE with normal EF. Status: Acute Code(s): I95.9 - Hypotension, unspecified (2) Hypoxia: Weaning of oxygen. Did well on MBS. On repeat chest x-ray right lower lung subsegmental atelectasis and/or pneumonia, slight increased left lower lung zone opacity likely atelectasis and pleural fluid. With persistence of cough, x-ray findings we will start him on antibiotic due to concern for pneumonia. Switched Eliquis to heparin drip. Will assess tomorrow with thoracic ultrasound to see if has enough fluid for thoracentesis. He denies using CPAP at home. Denies known history of EUGENIO. Denies known history of COPD emphysema. He is a former smoker. Will benefit from pulmonary function testing once he is out of acute episode. On chest x-ray also with fairly sizable atelectasis. Chest PT. Mucomyst inhalation. Collect sputum culture. TTE with normal EF, no signs of right heart strain. Appears to have perhaps mild pulmonary hypertension. Status: Acute Code(s): R09.02 - Hypoxemia (3) Bradycardia: Improved. Cardizem held. With history of atrial fibrillation. TSH is normal. Monitor heart rates. Significant bradycardia on admission. Status: Acute Code(s): R00.1 - Bradycardia, unspecified (4) Hypercalcemia: Gradually trending down. Continue to hold supplements. Status: Acute Code(s): E83.52 - Hypercalcemia (5) Acute alteration in mental status: He is awake and alert, able to describe his symptoms, although he mumbles, and goes off on tangents frequently, making him sometimes difficult to understand. This appears may be waxing waning. He was slightly confused after waking up, although did correct himself. Continue to monitor mental status. His calcium has been improving. Continue peritoneal dialysis. Status: Acute Code(s): R41.82 - Altered mental status, unspecified (6) Acute hypokalemia: Replaced. Status: Acute Code(s): E87.6 - Hypokalemia (7) End-stage renal disease on peritoneal dialysis: He has no abdominal discomfort. Dialysate Gram stain and culture has been ordered by nephrology. Not suspicious of peritonitis. Off Zosyn. Appreciate additional recommendations. Status: Acute Code(s): N18.6 - End stage renal disease; Z99.2 - Dependence on renal dialysis Additional A&P Information Troponin abnormality: He does not have any pain currently. He states he is always short of breath . He has been coughing due to suspected bronchitis. Troponin elevation may be secondary to atrial fibrillation, in the setting of ESRD. History of CAD is reported, although not see prior record of echocardiogram or stress test. Will assess currently with TTE. Continue aspirin. Continue anticoagulation. Benefit not clear from statin in case of ESRD, however, will add one for now. No beta-anila due to bradycardia. History of DVT right brachiocephalic vein. Continue anticoagulation Atrial fibrillation. Anticoagulated with anticoagulation History of hypertension. Holding Cardizem secondary to bradycardia Nursing facility records which indicate a past history of coronary disease. Attestations Medical Necessity Statement*: Continue admission for assessment of hypoxia, pleural effusion, pneumonia. 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
[2019-07-21] MEDS: benzonatate 100 mg Capsule PO (21:36)
[2019-07-21] MEDS: levoFLOXacin 750 mg Tablet PO (21:41)
[2019-07-22] VITALS (14 sets, daily range): BP systolic 97–128; BP diastolic 58–73; PULSE 72–130; RESP 17–24; TEMP 36.6–37; O2SAT 91–96
[2019-07-22 01:41] LABS: Partial Thromboplastin Time 125.1 SECONDS (23.9-36.7)
[2019-07-22] MEDS: ipratropium-albuterol 3 mL Neb INHALATION ×4 (02:25→20:33)
[2019-07-22] MEDS: Dianeal low Ca w/1.5% dex 2,000 mL Bag 2000 ML INTRAPERIT (03:15)
[2019-07-22] MEDS: heparin drip 25,000 UNIT/500 ML PREMIX 21 UNIT IV (05:02)
[2019-07-22 05:49] LABS: Basophils % 0.3 %; Eosinophils # 0.1 10^3/uL (0.0-0.8); Eosinophils % 1.4 %; Hematocrit 25.4 % (42.0-52.0); Hemoglobin 7.7 g/dL (11.7-16.6); Mean Corpuscular HGB Conc 30.3 g/dL (30.0-36.0); Mean Corpuscular Hemoglobin 32.9 pg (28.0-34.0); Mean Corpuscular Volume 108.5 fL (80-94); Mean Platelet Volume 10.1 fL (7.4-10.4); Monocytes # 0.7 10^3/uL (0.2-0.9); Monocytes % 10.7 %; Neutrophils # 4.5 10^3/uL (1.8-7.7); Neutrophils % 71.5 %; Nucleated Red Blood Cells % 0 %; Platelet Count 256 10^3/cmm (130-400); Red Blood Count 2.34 10^6/uL (4.1-5.3); Red Cell Distribution Width 17.8 % (12.1-15.1); White Blood Count 6.3 10^3/uL (4.0-10.0)
[2019-07-22 06:00] LABS: Alanine Aminotransferase 6 U/L (0-41); Albumin Level 2.5 g/dL (3.5-5.2); Alkaline Phosphatase 44 IU/L (40-130); Anion Gap 16.1 (5-19); Aspartate Amino Transferase 15 U/L (0-40); Blood Urea Nitrogen 28 mg/dL (8-23); Calcium 9.4 mg/dL (8.5-10.5); Carbon Dioxide 27 mmol/L (22-29); Chloride 101 mmol/L (98-107); Globulin 2.6 g/dL (1.3-4.6); Glucose 95 mg/dL (65-115); Potassium 4.1 mmol/L (3.5-5.1); Sodium 140 mmol/L (136-145); Total Bilirubin 0.4 mg/dL (0.15-1.2); Total Protein 5.1 g/dL (6.6-8.7)
[2019-07-22 06:01] LABS: Magnesium 1.7 mg/dL (1.7-2.3)
--- NOTE | 2019-07-22 07:13 | PM.PN ---
Subjective Subjective: Interval history: sob, wheezing, hard of hearing. weak. Medications: Reviewed: Yes Medication Review Details: Current Medications Acetaminophen (Tylenol) 650 mg PO Q6H PRN PRN Reason: Mild/Mod Pain Or Temp >/= 101 Acetylcysteine (Mucomyst) 100 mg INHALATION Q6H.RESPIRATORY [facility] Last Admin: 07/21/19 20:13 Dose: 100 mg Documented by: Albuterol/Ipratropium (Duoneb) 3 ml INHALATION Q4H.RESPIRATORY PRN PRN Reason: SHORTNESS OF BREATH Albuterol/Ipratropium (Duoneb) 3 ml INHALATION Q6H.RESPIRATORY [facility] Last Admin: 07/22/19 02:25 Dose: 3 ml Documented by: Apixaban (Eliquis) 2.5 mg PO BID [facility] Last Admin: 07/21/19 08:00 Dose: 2.5 mg Documented by: Aspirin (Aspirin Ec) 81 mg PO DAILY [facility] Last Admin: 07/21/19 08:00 Dose: 81 mg Documented by: Atorvastatin Calcium (Lipitor) 40 mg PO DAILY [facility] Last Admin: 07/21/19 08:00 Dose: 40 mg Documented by: Benzonatate (Tessalon Pearls) 100 mg PO TID PRN PRN Reason: COUGH Last Admin: 07/21/19 21:36 Dose: 100 mg Documented by: Budesonide (Pulmicort) 0.25 mg INHALATION BID.RESPIRATORY [facility] Last Admin: 07/21/19 20:12 Dose: 0.25 mg Documented by: Docusate Sodium (Colace) 100 mg PO BID [facility] Last Admin: 07/21/19 17:52 Dose: 100 mg Documented by: Finasteride (Proscar) 5 mg PO DAILY [facility] Last Admin: 07/21/19 08:01 Dose: 5 mg Documented by: Heparin Sodium (Beef Lung) (Heparin) 0 unit IV PRN PRN; Protocol PRN Reason: Heparin weight-base protocol Last Admin: 07/21/19 09:13 Dose: 5,750 unit Documented by: Heparin Sodium/Sodium Chloride (Heparin Drip) 25,000 unit in 500 mls @ 0 mls/hr IV .Q0M [facility]A; Protocol Last Admin: 07/22/19 05:02 Dose: 9.45 unit/kg/hr, 21 mls/hr Documented by: Lactulose (Constulose) 30 gm PO BID [facility] Last Admin: 07/21/19 17:52 Dose: 30 gm Documented by: Levofloxacin (Levaquin) 750 mg PO Q48H [facility]; Protocol Last Admin: 07/21/19 21:41 Dose: 750 mg Documented by: Ondansetron HCl (Zofran) 4 mg IVP Q6H PRN PRN Reason: vomiting, or N/V if npo Peritoneal Dialysis Solution (Dianeal Low Ca W/1.5% Dex) 2,000 ml INTRAPERIT BID [facility] Last Admin: 07/22/19 03:15 Dose: 2,000 ml Documented by: Peritoneal Dialysis Solution (Dianeal Low Ca W/2.5% Dex) 2,000 ml INTRAPERIT BID [facility] Last Admin: 07/21/19 21:41 Dose: 2,000 ml Documented by: Polyethylene Glycol (Miralax) 17 gm PO DAILY [facility] Last Admin: 07/21/19 08:02 Dose: 17 gm Documented by: Potassium Chloride (Klor-Con 10) 40 meq PO BID [facility] Stop: 07/22/19 09:01 Last Admin: 07/21/19 17:52 Dose: 40 meq Documented by: Tamsulosin HCl (Flomax) 0.4 mg PO BIDWM [facility] Last Admin: 07/21/19 17:52 Dose: 0.4 mg Documented by: Vitals/I&O/Wt Last Vital Signs Temp 98.2 F 07/22/19 04:00 Pulse 98 07/22/19 04:00 Resp 19 H 07/22/19 04:00 BP 128/67 07/22/19 04:00 Pulse Ox 93 07/22/19 04:00 07/21/19 07/22/19 07/22/19 22:59 06:59 14:59 Intake Total 240 / 870 1000 / 1870 Balance 240 / 870 1000 / 1870 Weight last 48 hrs Weight 111.13 kg Physical Exam Narrative: EXAM NARRATIVE: obese man in bed VSS NARD heent- nc/at, eomi neck supple lungs wheezing, dull bases heart reg abd soft, nt, nd, + dialysis catheter ext b/l edema neuro- a,a, o x 2 Urinary Catheter Management^: Crowe: Cath Placed During This Visit: yes Urethral Indwelling: Yes Reason for Continuing Indwelling Catheter: Acute Urinary Retention or Obstruction Urinary Catheter Date of Insertion: 07/18/19 Urinary Catheter Time of Insertion: 17:49 Data : 07/22/19 05:12 07/22/19 05:12 Other Labs: Abnormal lab results 07/21/19 07/21/19 07/22/19 Range/Units 15:09 18:54 00:54 RBC (4.1-5.3) 10^6/uL Hgb (11.7-16.6) g/dL Hct (42.0-52.0) % MCV (80-94) fL RDW (12.1-15.1) % APTT 222.9 H* 58.8 H D 125.1 H D (23.9-36.7) SECONDS BUN (8-23) mg/dL Creatinine (0.7-1.2) mg/dL Total Protein (6.6-8.7) g/dL Albumin (3.5-5.2) g/dL 07/22/19 07/22/19 Range/Units 05:12 05:12 RBC 2.34 L (4.1-5.3) 10^6/uL Hgb 7.7 L (11.7-16.6) g/dL Hct 25.4 L (42.0-52.0) % MCV 108.5 H (80-94) fL RDW 17.8 H (12.1-15.1) % APTT (23.9-36.7) SECONDS BUN 28 H (8-23) mg/dL Creatinine 3.4 H (0.7-1.2) mg/dL Total Protein 5.1 L (6.6-8.7) g/dL Albumin 2.5 L (3.5-5.2) g/dL Micro: Microbiology 07/18/19 23:00 Dialysis Fluid Culture - Preliminary Dialysis Fluid A&P Additional A&P Information 1. End stage kidney disease on peritoneal dialysis. -pt appears volume overloaded= will do CAPD- 5 exchanges a day 2.5% glucose, low ca. 2liter fills Strict Is and Os 2. Bradycardia and hemodynamics appears to be secondary to diltiazem, heart is now improving without it. random ab of 10. consider cosyntropin stim test or can give low dose steroids 3. Anemia. epogen -check iron studies 4. Bone metabolism of end-stage kidney disease. -hypercalcemia likely from vit d analouge -hold vit d analouge -no ca containing binders 5. electrolytes are otherwise okay 6. pleural effusions- monitor w/ hd. await repeat imaging. consideration of thorocentesis as per hospitalist 7. eliquis renal dose for p a fib Attestations Medical Necessity Statement*: volume overload, a fib, per hospitalist Time Spent in Patient Care: 16 - 35 minutes (>than 50% of time spent in counselling and/or direct pt care on unit). 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
[2019-07-22] MEDS: budesonide 0.5 mg/2 mL Neb 0.25 MG INHALATION ×2 (08:50→20:33)
[2019-07-22] MEDS: atorvastatin 40 mg Tablet PO (08:56)
[2019-07-22] MEDS: aspirin 81 mg EC Tablet PO (08:56)
[2019-07-22] MEDS: tamsulosin 0.4 mg Capsule PO ×2 (08:56→17:53)
[2019-07-22] MEDS: finasteride 5 mg Tablet PO (08:56)
[2019-07-22 08:57] LABS: Partial Thromboplastin Time 88.8 SECONDS (23.9-36.7)
[2019-07-22] MEDS: polyethylene glycol 3350 Pkt 17 gm PO (09:00)
[2019-07-22 09:05] LABS: Calcium 9.7 mg/dL (8.5-10.5)
[2019-07-22 09:28] LABS: Ferritin 1160 ng/mL (30-400)
[2019-07-22 09:45] LABS: Parathyroid Hormone 30.8 pg/mL (15-65)
[2019-07-22] MEDS: Dianeal low Ca w/2.5% dex 2,000 mL Bag 2000 ML INTRAPERIT ×3 (10:00→20:44)
--- NOTE | 2019-07-22 12:26 | US_ITS ---
WS: [id number] Ultrasound chest. Ultrasound is performed of the LEFT thorax to evaluate for possible pleural effusion. COMPARISON: Chest radiograph 07/21/2019. Ultrasound is performed of the LEFT chest. There is no pleural effusion identified. No fluid within t he LEFT upper abdomen. US/US chest [id number] IMPRESSION: No LEFT pleural effusion.
[2019-07-22 15:07] LABS: Partial Thromboplastin Time 54.1 SECONDS (23.9-36.7)
[2019-07-22] MEDS: heparin 5,000 unit/mL INJ 1 mL IV (15:33)
--- NOTE | 2019-07-22 20:34 | P.PN_ITS ---
Subjective Subjective: Interval history: He feels he is doing better in terms of his breathing, however, feels that he is declining functionally, and that is not as good at walking as he was. He is eager to return to [facility] when possible. Vitals/I&O/Wt Last Vital Signs Temp 98.6 F 07/22/19 15:33 Pulse 115 H 07/22/19 15:33 Resp 20 H 07/22/19 15:33 BP 97/58 07/22/19 15:33 Pulse Ox 91 07/22/19 15:33 07/22/19 07/22/19 07/22/19 06:59 14:59 22:59 Intake Total 1000 / 1870 600 / 600 240 / 840 Output Total 1600 / 1600 Balance 1000 / 1870 600 / 600 -1360 / -760 Physical Exam Const: COMMON NORMALS: no apparent distress and oriented x3 HENMT: COMMON NORMALS: oropharynx normal Resp: COMMON NORMALS: normal respiratory effort EFFORT & INSPECTION: Yes able to speak in complete sentences (goes on tangents) AUSCULTATION: diminished lung sounds Cardio: COMMON NORMALS: regular rhythm, S1 normal heart sound, S2 normal heart sound and no murmurs RHYTHM: regular rhythm HEART SOUNDS: S1 normal and S2 normal OTHER: Not assess JVD due to thick neck. 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 If further hypotension, may consider assessment by CTA stim test. I do believe the dehydration contributes to his episodes of hypotension. Volume status difficult to assess in his case due to body habitus. On Flomax 0.4 mg twice a day. TSH normal. TTE with normal EF. Status: Acute Code(s): I95.9 - Hypotension, unspecified (2) Hypoxia: Wean down to room air. Did well on MBS. On repeat chest x-ray right lower lung subsegmental atelectasis and/or pneumonia, slight increased left lower lung zone opacity likely atelectasis and pleural fluid. Requested for chest ultrasound. Anticoagulation switched to heparin in case may benefit from thoracentesis. Started on Levaquin due to concern for pneumonia. He denies known history of EUGENIO. Denies known history of COPD emphysema. He is a former smoker. Will benefit from pulmonary function testing once he is out of acute episode. Chest PT. Mucomyst inhalation. Collect sputum culture. TTE with normal EF, no signs of right heart strain. Appears to have perhaps mild pulmonary hypertension. Status: Acute Code(s): R09.02 - Hypoxemia (3) Bradycardia: Improved. Cardizem held. With history of atrial fibrillation. TSH is normal. Monitor heart rates. Significant bradycardia on admission. Status: Acute Code(s): R00.1 - Bradycardia, unspecified (4) Hypercalcemia: Gradually trending down. Continue to hold supplements. Status: Acute Code(s): E83.52 - Hypercalcemia (5) Acute alteration in mental status: He is awake and alert, able to describe his symptoms, although he mumbles, and goes off on tangents frequently, making him sometimes difficult to understand. This appears may be waxing waning. He was slightly confused after waking up, although did correct himself. Continue to monitor mental status. His calcium has been improving. Continue peritoneal dialysis. Status: Acute Code(s): R41.82 - Altered mental status, unspecified (6) Acute hypokalemia: Replaced. Status: Acute Code(s): E87.6 - Hypokalemia (7) End-stage renal disease on peritoneal dialysis: He has no abdominal discomfort. Dialysate Gram stain and culture has been ordered by nephrology. Not suspicious of peritonitis. Off Zosyn. Appreciate additional recommendations. Status: Acute Code(s): N18.6 - End stage renal disease; Z99.2 - Dependence on renal dialysis Additional A&P Information Troponin abnormality: He does not have any pain currently. He states he is always short of breath . He has been coughing due to suspected bronchitis. Troponin elevation may be secondary to atrial fibrillation, in the setting of ESRD. History of CAD is reported, although not see prior record of echocardiogram or stress test. Will assess currently with TTE. Continue aspirin. Continue anticoagulation. Benefit not clear from statin in case of ESRD, however, will add one for now. No beta-anila due to bradycardia. History of DVT right brachiocephalic vein. Continue anticoagulation Atrial fibrillation. Anticoagulated with anticoagulation History of hypertension. Holding Cardizem secondary to bradycardia Nursing facility records which indicate a past history of coronary disease. Attestations Medical Necessity Statement*: Continue admission for assessment and management of pneumonia, with dyspnea, hypoxia, suspected parapneumonic effusion. 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 Diagnoses Hypotension I95.9 Hypoxia R09.02 Bradycardia R00.1 Hypercalcemia E83.52 Acute alteration in mental status R41.82 Acute hypokalemia E87.6 End-stage renal disease on peritoneal dialysis N18.6; Z99.2
[2019-07-22 20:39] LABS: Partial Thromboplastin Time 73.7 SECONDS (23.9-36.7)
--- NOTE | 2019-07-22 22:50 | PC.NURSE ---
No change in Heparin titrate at this time. Titration has not been documented on previous shifts within flowsheet. Please see written Heparin Protocol Sheet with titrations.
[2019-07-23] VITALS (12 sets, daily range): BP systolic 97–122; BP diastolic 62–72; PULSE 57–117; RESP 18–22; TEMP 36.4–36.8; O2SAT 90–96
[2019-07-23] MEDS: benzonatate 100 mg Capsule PO ×2 (00:50→13:15)
[2019-07-23] MEDS: Dianeal low Ca w/2.5% dex 2,000 mL Bag 2000 ML INTRAPERIT (02:28)
[2019-07-23] MEDS: ipratropium-albuterol 3 mL Neb INHALATION ×3 (02:54→14:54)
[2019-07-23 04:52] LABS: Basophils % 0.3 %; Eosinophils # 0.1 10^3/uL (0.0-0.8); Eosinophils % 1.6 %; Hematocrit 27.6 % (42.0-52.0); Hemoglobin 8.4 g/dL (11.7-16.6); Lymphocytes # 1.1 10^3/uL (0.8-4.8); Lymphocytes % 17.4 %; Mean Corpuscular HGB Conc 30.4 g/dL (30.0-36.0); Mean Corpuscular Hemoglobin 34.3 pg (28.0-34.0); Mean Corpuscular Volume 112.7 fL (80-94); Mean Platelet Volume 9.8 fL (7.4-10.4); Monocytes # 0.6 10^3/uL (0.2-0.9); Monocytes % 10.2 %; Neutrophils # 4.2 10^3/uL (1.8-7.7); Neutrophils % 68.4 %; Nucleated Red Blood Cells % 0 %; Platelet Count 251 10^3/cmm (130-400); Red Blood Count 2.45 10^6/uL (4.1-5.3); Red Cell Distribution Width 18.2 % (12.1-15.1); White Blood Count 6.2 10^3/uL (4.0-10.0)
[2019-07-23 04:57] LABS: Partial Thromboplastin Time 64.4 SECONDS (23.9-36.7)
[2019-07-23 05:14] LABS: Alanine Aminotransferase 6 U/L (0-41); Albumin Level 2.6 g/dL (3.5-5.2); Alkaline Phosphatase 48 IU/L (40-130); Anion Gap 14.2 (5-19); Aspartate Amino Transferase 12 U/L (0-40); Blood Urea Nitrogen 26 mg/dL (8-23); Carbon Dioxide 29 mmol/L (22-29); Chloride 101 mmol/L (98-107); Globulin 2.6 g/dL (1.3-4.6); Glucose 110 mg/dL (65-115); Phosphorus 2.5 mg/dL (2.5-4.5); Potassium 4.2 mmol/L (3.5-5.1); Sodium 140 mmol/L (136-145); Total Bilirubin 0.4 mg/dL (0.15-1.2); Total Protein 5.2 g/dL (6.6-8.7)
[2019-07-23] MEDS: heparin drip 25,000 UNIT/500 ML PREMIX 18 UNIT IV (05:57)
--- NOTE | 2019-07-23 06:28 | P.PN_ITS ---
Subjective Subjective: Interval history: feels better. still swollen, edema. improved sob Vitals/I&O/Wt Last Vital Signs Temp 97.5 F L 07/23/19 03:57 Pulse 84 07/23/19 03:57 Resp 22 H 07/23/19 03:57 BP 109/65 07/23/19 03:57 Pulse Ox 92 07/23/19 03:57 07/22/19 07/22/19 07/23/19 14:59 22:59 06:59 Intake Total 600 / 600 2575.3 / 3175.3 161.1 / 3336.4 Output Total 3500 / 3500 300 / 3800 Balance 600 / 600 -924.7 / -324.7 -138.9 / -463.6 Physical Exam Narrative: EXAM NARRATIVE: obese man in bed VSS NARD heent- nc/at, eomi neck supple lungs wheezing, dull bases heart reg abd soft, nt, nd, + dialysis catheter ext b/l edema neuro- a,a, o x 2 Urinary Catheter Management^: Crowe: Cath Placed During This Visit: yes Urethral Indwelling: Yes Reason for Continuing Indwelling Catheter: Acute Urinary Retention or Obs truction Urinary Catheter Date of Insertion: 07/18/19 Urinary Catheter Time of Insertion: 17:49 Data : 07/23/19 04:33 07/23/19 04:33 Micro: Microbiology 07/18/19 23:00 Dialysis Fluid Culture - Final Dialysis Fluid A&P Additional A&P Information 1. End stage kidney disease on peritoneal dialysis. -pt appears less volume overloaded= will do CAPD- 5 exchanges a day alternate 1.5% and 2.5% glucose, low ca. 2liter fills Strict Is and Os 2. Bradycardia and hemodynamics appears to be secondary to diltiazem, heart is now improving without it. random ab of 10. consider cosyntropin stim test or can give low dose steroids 3. Anemia. cont epo. no iv iron w/ high ferritin 4. Bone metabolism of end-stage kidney disease. -hypercalcemia likely from vit d analouge -hold vit d analouge -no ca containing binders note very low pth w/ esrd 5. electrolytes are otherwise okay 6. pleural effusions- monitor w/ hd. await repeat imaging. consideration of thorocentesis as per hospitalist -hypoalbuminemia- needs more protein in diet -pna- abx per hospitalist -pleural effusion- monitor chest us 7. eliquis renal dose for p a fib discussed w/ rn Attestations Medical Necessity Statement*: pna, effusion. 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
[2019-07-23] MEDS: tamsulosin 0.4 mg Capsule PO ×2 (07:46→17:12)
[2019-07-23] MEDS: Dianeal low Ca w/1.5% dex 2,000 mL Bag 2000 ML INTRAPERIT (07:51)
[2019-07-23] MEDS: lactulose oral liq 20 gm/30 mL UDC 30 GM PO (08:06)
[2019-07-23] MEDS: docusate sodium 100 mg Capsule PO (08:07)
[2019-07-23] MEDS: aspirin 81 mg EC Tablet PO (08:08)
[2019-07-23] MEDS: finasteride 5 mg Tablet PO (08:08)
[2019-07-23] MEDS: atorvastatin 40 mg Tablet PO (08:09)
[2019-07-23] MEDS: b-complex-vitamin c Tablet 1 EACH PO (08:09)
[2019-07-23] MEDS: polyethylene glycol 3350 Pkt 17 gm PO (08:10)
[2019-07-23] MEDS: budesonide 0.5 mg/2 mL Neb 0.25 MG INHALATION (08:52)
--- NOTE | 2019-07-23 13:03 | PM.DCS ---
Discharge Providers Date of Admission: 07/18/19 18:55 Date of Discharge: July 23, 2019 Attending Provider at Admission: Dieter Figueroa MD Attending Provider at Discharge: Rudi Bailey Primary Care Provider: Luis Antonio Mulligan Diagnoses at Discharge Discharge Diagnosis (1) Hypotension: Status: Acute (2) Hypoxia: Status: Acute (3) Bradycardia: Status: Acute (4) Hypercalcemia: Status: Acute (5) Acute alteration in mental status: Status: Acute (6) Acute hypokalemia: Status: Acute (7) End-stage renal disease on peritoneal dialysis: Status: Acute Reason for Visit Reason for Visit: Reason For Visit: ams/low hr Hospital Course Hospital Course: Mr. Ramirez is a 78-year-old gentleman with history of ESRD, on peritoneal dialysis, A. fib, CAD, DVT on chronic anticoagulation, HTN was admitted from dialysis clinic where he was getting a blood draw due to lethargy, requiring BiPAP support in ER, with noted bradycardia for which she received atropine, and was started on Zosyn for suspected urinary tract infection. Bradycardia was thought to be secondary to calcium channel anila which was discontinued. Hypercalcemia noted on admission secondary to calcium acetate and vitamin D, which were held. His hypercalcemia gradually trended down. His lethargy resolved. Peritoneal dialysate was sent for assessment, and studies were not suggestive of acute peritonitis. Urine culture without growth. Zosyn was discontinued. Despite improvement in mental status, noted to be hypoxic, with left lung atelectasis, pneumonia was treated with antibiotic, breathing treatments, Mucomyst. Chest ultrasound did not reveal parapneumonic effusion. His oxygenation gradually improved, and he is now doing well on room air. Of note blood pressures were soft for a while in the hospital despite resolution of bradycardia. Morning serum cortisol was checked, and was 10.49, with normal TSH, and normal ejection fraction on echocardiogram. His blood pressure is currently normal. In case of future issues with hypotension, consider assessment by ACTH stimulation test, stress dose steroids if needed. Due to her pontine abnormality on presentation, thought to be secondary to mismatch and demand and supply with bradycardia, UTI, hypoxia, hypotension, he is referred for additional assessment for coronary artery disease with outpatient stress testing. Continue to optimize risk factors for coronary disease. He is feeling well today without any discomfort, and is eager to return to the custodial. Physical Exam Const: COMMON NORMALS: no apparent distress and oriented x3 HENMT: COMMON NORMALS: oropharynx normal Resp: COMMON NORMALS: normal respiratory effort EFFORT & INSPECTION: Yes able to speak in complete sentences (goes on tangents) AUSCULTATION: diminished lung sounds Cardio: COMMON NORMALS: regular rhythm, S1 normal heart sound, S2 normal heart sound and no murmurs RHYTHM: regular rhythm HEART SOUNDS: S1 normal and S2 normal OTHER: Not assess JVD due to thick neck. 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 Urinary Catheter Management^: Crowe: Cath Placed During This Visit: yes Urethral Indwelling: Yes Reason for Continuing Indwelling Catheter: Acute Urinary Retention or Obstruction Urinary Catheter Date of Insertion: 07/18/19 Urinary Catheter Time of Insertion: 17:49 Discharge Data Data Completed and Pending: Completed Studies During Hospitalization Category Date Time Status CT head wo con* 7 0450 Urgent Cat Scan 07/18/19 16:00 Completed FL barium swallow modifd [id number] Rout ine Exams 07/20/19 11:36 Completed XR chest 1V camila ble [id number] Routine Exams 07/19/19 09:01 Completed XR chest 1V camila ble [id number] Routine Exams 07/21/19 06:00 Completed XR chest 1V camila ble [id number] Stat Exams 07/18/19 15:59 Completed CV echo complete* [id number] Routine Ultrasound 07/19/19 09:12 Completed [place] chest 25130 Ro utine Ultrasound 07/22/19 12:26 Completed Pending at discharge Category Date Time Status Blood Culture Sta t Lab 07/18/19 15:59 Results Blood Culture Sta t Lab 07/18/19 17:47 Results Complete Blood Co unt w/Auto AM LABS Lab 07/24/19 04:00 Ordered Complete Blood Co unt w/Auto AM LABS Lab 07/25/19 04:00 Ordered Comprehensive Met abolic Panel AM [facility] Lab 07/24/19 04:00 Ordered Comprehensive Met abolic Panel AM LA BS Lab 07/25/19 04:00 Ordered Phosphorus AM LAB S Lab 07/24/19 04:00 Ordered Phosphorus AM LAB S Lab 07/25/19 04:00 Ordered Sputum Culture an d Gram Stain Routi ne Lab 07/23/19 08:40 Ordered Labs from last 24 hours 07/23/19 07/23/19 07/23/19 04:33 04:33 04:33 WBC 6.2 RBC 2.45 L Hgb 8.4 L Hct 27.6 L MCV 112.7 H MCH 34.3 H MCHC 30.4 RDW 18.2 H Plt Count 251 MPV 9.8 Neut % (Auto) 68.4 Lymph % (Auto) 17.4 Blackford % (Auto) 10.2 Eos % (Auto) 1.6 Baso % (Auto) 0.3 Neut # (Auto) 4.2 Lymph # (Auto) 1.1 Blackford # (Auto) 0.6 Eos # (Auto) 0.1 Baso # (Auto) 0.0 Nucleated RBC % (a uto) 0 Nucleated RBCs # 0.0 APTT 64.4 H Sodium 140 Potassium 4.2 Chloride 101 Carbon Dioxide 29 Anion Gap 14.2 BUN 26 H Creatinine 3.4 H Glucose 110 Calcium 9.0 Phosphorus 2.5 Total Bilirubin 0.4 AST 12 ALT 6 Alkaline Phosphata se 48 Total Protein 5.2 L Albumin 2.6 L Globulin 2.6 07/22/19 07/22/19 20:10 14:33 WBC RBC Hgb Hct MCV MCH MCHC RDW Plt Count MPV Neut % (Auto) Lymph % (Auto) Blackford % (Auto) Eos % (Auto) Baso % (Auto) Neut # (Auto) Lymph # (Auto) Blackford # (Auto) Eos # (Auto) Baso # (Auto) Nucleated RBC % (a uto) Nucleated RBCs # APTT 73.7 H 54.1 H Sodium Potassium Chloride Carbon Dioxide Anion Gap BUN Creatinine Glucose Calcium Phosphorus Total Bilirubin AST ALT Alkaline Phosphata se Total Protein Albumin Globulin Vitals: Last Vital Signs Temp 97.8 F 07/23/19 11:29 Pulse 105 H 07/23/19 11:29 Resp 20 H 07/23/19 11:29 BP 122/68 07/23/19 11:29 Pulse Ox 94 07/23/19 11:29 Discharge Plan Discharge Patient Disposition: Xfer [facility] Condition: Stable Prescriptions: New atorvastatin 40 mg Tablet 40 mg PO DAILY Qty: 30 RF: 0 levofloxacin 750 mg Tablet 750 mg PO Q48H Qty: 2 RF: 0 metoprolol tartrate 25 mg tablet 12.5 mg PO BID Qty: 30 RF: 0 Continued benzonatate 200 mg Capsule 200 mg PO TID PRN (Reason: Cough) RF: 0 Zofran 4 mg Tablet 4 mg PO Q6H PRN (Reason: Nausea) RF: 0 Senna-S 8.6-50 mg Tablet 2 tab PO BID PRN (Reason: Constipation) RF: 0 Aspir-81 81 mg Tablet,Delayed Release (Dr/Ec) 81 mg PO DAILY RF: 0 Ultram 50 mg Tablet 50 mg PO Q6H PRN (Reason: Pain) RF: 0 guaifenesin 100 mg/5 mL Liquid 200 mg PO Q4H PRN (Reason: Cough) RF: 0 Arthritis Pain Relief (acetam) 650 mg Tablet Extended Release 650 mg PO Q8H PRN (Reason: Pain) RF: 0 Milk of Magnesia 400 mg/5 mL Suspension 30 ml PO DAILY PRN (Reason: Constipation) RF: 0 Flomax 0.4 mg Capsule 0.8 mg PO DAILY RF: 0 furosemide [Lasix] 80 mg Tablet 80 mg PO BID RF: 0 bisacodyl 10 mg Suppository 10 mg HI DAILY PRN (Reason: Constipation) RF: 0 Enema Disposable 19-7 gram/118 mL Enema 118 ml HI DAILY PRN (Reason: Constipation) RF: 0 Colace 100 mg Capsule 100 mg PO BID RF: 0 Miralax 17 gram/dose Powder 17 g PO DAILY RF: 0 finasteride 5 mg Tablet 5 mg PO DAILY RF: 0 bisacodyl 5 mg Tablet 20 mg PO DAILY PRN (Reason: Constipation) RF: 0 lactulose 10 gram/15 mL Solution 30 ml PO BID RF: 0 Eliquis 2.5 mg Tablet 2.5 mg PO BID RF: 0 Liquacel Protein Supplement 30 ml PO TID RF: 0 promethazine-codeine 6.25-10 mg/5 mL Syrup 5 ml PO Q6H PRN (Reason: Cough) RF: 0 Discontinued diltiazem HCl 360 mg Capsule,Extended Release 24 Hr 360 mg PO DAILY RF: 0 potassium chloride 20 mEq Tablet Extended Release 20 meq PO DAILY RF: 0 RenaPlex-D 800 mcg-12.5 mg -2,000 unit Tablet 1 tab PO DAILY RF: 0 calcium acetate 2,001 mg PO TID RF: 0 Discharge Orders: Discharge Order (Routine); Ordered 07/23/19 Ordered By: Rudi Bailey Other Ambulatory Orders: Sestamibi Stress Test Request (Routine) Timeframe: 1 Week Facility: [facility] - Location: Card[facility] Diagnostic Laboratory Ordered By: Rudi Bailey 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 Low sodium, less than 2g per day. Monitor heart rates 3 times daily, record values to bring to the appointment. Maintain orthostatic precautions, rise slowly from laying to sitting, sitting to standing. Strict fall precautions. Discharge Attestations Time Spent in Discharge Care*: greater than 30 min Quality Metrics Clinical Quality Measures During this hospital stay, did patient experience: None Coding Level of Care Code Acute Adult Nurse Practitioner for [place] Fwd Diagnoses Hypotension I95.9 Hypoxia R09.02 Bradycardia R00.1 Hypercalcemia E83.52 Acute alteration in mental status R41.82 Acute hypokalemia E87.6 End-stage renal disease on peritoneal dialysis N18.6; Z99.2
[2019-07-23] MEDS: apixaban 5 mg Tablet 2.5 MG PO (17:12)
== END 2019-07-23 17:25 | disposition designated cancer center or children's hospital (05) | DRG 308 ==
LOC: ER 18:43 → ICU 19:23 → MEDSURG 07-21 02:32
PROVIDERS: Internal Medicine Nephrology; Admitting Provider Internal Medicine; Emergency Provider Emergency Medicine; Family Provider Internal Medicine; PCP Internal Medicine; Visit Provider Internal Medicine
DX: R00.1 Bradycardia, unspecified (principal); N18.6 End stage renal disease; J18.9 Pneumonia, unspecified organism; I12.0 Hypertensive chronic kidney disease with stage 5 chronic kidney disease or end stage renal disease; Z99.2 Dependence on renal dialysis; I48.91 Unspecified atrial fibrillation; I25.10 Atherosclerotic heart disease of native coronary artery without angina pectoris; Z86.718 Personal history of other venous thrombosis and embolism; Z79.01 Long term (current) use of anticoagulants; Z87.891 Personal history of nicotine dependence; E83.52 Hypercalcemia; R41.82 Altered mental status, unspecified; E87.6 Hypokalemia; D63.1 Anemia in chronic kidney disease; I95.9 Hypotension, unspecified; R09.02 Hypoxemia; Z79.82 Long term (current) use of aspirin
CPT/HCPCS: 12345; 36415; 36600; 51702; 70450; 71045; 74230; 76604; 80048; 80053; 80307; 80500; 81001; 82140; 82310; 82533; 82728; 82803; 83605; 83735; 83880; 83970; 84100; 84443; 84484; 85025; 85610; 85730; 87040; 87070; 87086; 87205; 87804; 89050; 90935; 92526; 92611; 93005; 93306; 94640; 94660; 96375; 97110; 97116; 97162; 99284; J0461; J1644; J2310; J2405; J2543; J3480; J7030; J7608; J7626; P9047; Q3014

== ENCOUNTER 2020-03-27 14:06 | Outpatient (CLI) | payer OTHER, SELFPAY | END 2020-03-27 14:07 | disposition home or self-care (01) | LOC: WOUND 14:12 | PROVIDERS: Family Provider Internal Medicine; PCP Internal Medicine; Visit Provider Nurse Practitioner Family | DX: L97.812 Non-pressure chronic ulcer of other part of right lower leg with fat layer exposed (principal); L97.821 Non-pressure chronic ulcer of other part of left lower leg limited to breakdown of skin | CPT/HCPCS: 11042; 87070; 87077; 87176; 87186; 87205; G0463 ==

== ENCOUNTER 2020-04-03 13:27 | Outpatient (CLI) | payer OTHER, SELFPAY ==
--- NOTE | 2020-04-03 13:42 | CT_ITS ---
WS: [id number] CT LEFT HIP, NONCONTRAST. HISTORY: LUMP ON LEFT HIP Technique: All CT scans at [facility] use at least one of these dose optimization techniq ues: automated exposure control; mA and/or kV adjustment per patient size (includes targeted exams wh ere dose is matched to clinical indication); or iterative reconstruction. DLP: 804.16 mGycm COMPARISON: 04/23/2019. No fracture or dislocation. Mild degenerative narrowing of the hip joint. Mild atrophy of the muscles surrounding the hip. There is no focal mass. Moderate calcification in the visualized femoral artery . Incompletely visualized is a previously described fluid collection within the anterior LEFT pelvic wa ll surrounded by clips from a prior hernia repair. This was also described on 04/23/2019 and not sign ificantly changed. The soft tissue edema noted on the prior CT in the LEFT pelvic sidewall has improv ed. Enlarged prostate gland encroaching into the urinary bladder. CT/CT hip LT wo con* [id number] IMPRESSION: 1. No fracture or soft tissue mass over the LEFT hip. 2. Mild atherosclerosis femoral artery. 3. Incompletely visualized is a previously described fluid collection within t he anterior pelvis. May be associated with the hernia repair. This is not encro aching upon the hip.
== END 2020-04-03 13:28 | disposition home or self-care (01) ==
LOC: RADWPI 13:41
PROVIDERS: Family Provider Internal Medicine; PCP Internal Medicine; Visit Provider Family Medicine
DX: R22.42 Localized swelling, mass and lump, left lower limb (principal); I70.202 Unspecified atherosclerosis of native arteries of extremities, left leg
CPT/HCPCS: 73700

== ENCOUNTER 2020-04-03 14:23 | Outpatient (CLI) | payer OTHER, SELFPAY | END 2020-04-03 14:24 | disposition home or self-care (01) | LOC: WOUND 14:23 | PROVIDERS: Family Provider Internal Medicine; PCP Internal Medicine; Visit Provider Thoracic Surgery (Cardiothoracic Vascular Surgery) | DX: L97.812 Non-pressure chronic ulcer of other part of right lower leg with fat layer exposed (principal); L97.821 Non-pressure chronic ulcer of other part of left lower leg limited to breakdown of skin | CPT/HCPCS: 11042 ==

== ENCOUNTER 2020-04-10 14:50 | Outpatient (CLI) | payer OTHER, SELFPAY | END 2020-04-10 14:51 | disposition home or self-care (01) | LOC: WOUND 14:51 | PROVIDERS: Family Provider Internal Medicine; PCP Internal Medicine; Visit Provider Thoracic Surgery (Cardiothoracic Vascular Surgery) | DX: I89.0 Lymphedema, not elsewhere classified (principal); L97.812 Non-pressure chronic ulcer of other part of right lower leg with fat layer exposed | CPT/HCPCS: 11042 ==

== ENCOUNTER 2020-04-17 13:12 | Outpatient (CLI) | payer OTHER, SELFPAY | END 2020-04-17 13:13 | disposition home or self-care (01) | LOC: WOUND 13:13 | PROVIDERS: Family Provider Internal Medicine; PCP Internal Medicine; Visit Provider Thoracic Surgery (Cardiothoracic Vascular Surgery) | DX: I89.0 Lymphedema, not elsewhere classified (principal); L97.812 Non-pressure chronic ulcer of other part of right lower leg with fat layer exposed | CPT/HCPCS: 11042 ==

== ENCOUNTER 2020-04-24 13:57 | Outpatient (CLI) | payer OTHER, SELFPAY ==
--- NOTE | 2020-04-24 15:22 | USCV_ITS ---
Madhavi Ramirez Age: 79 Gender: M : 1940 Exam Date: 04/24/2020 15:39 Ordering Phys: Jeannie Miranda RN Technologist: Exam [place] [facility] [place] Indication: NON HEALING WOUND RIGHT LEFT Brachial 135.00 mmHg Brachial 134.00 mmHg Pressure (mmHg) Waveform Pressure (mmHg) Waveform 163.00 Above Knee 168.00 176.00 Below Knee 175.00 179.00 MANAGER OF MAINTENANCE 153.00 160.00 DPA 142.00 1.30 Ankle/Brachial Index 1.10 0.64 Pre-Exercise Toe Pressure 0.92 FINDINGS Normal resting ABIs bilaterally Slightly diminished resting TBI on the right side Normal resting TBI on the left side PVR waveforms were of suboptimal quality CONCLUSIONS Possible mild peripheral artery disease on the right side No significant arterial obstruction on the left side Dr Tierney French MD FAC (Electronically Signed) Final Date: 24 April 2020 19:24 S
== END 2020-04-24 13:58 | disposition home or self-care (01) ==
PROVIDERS: PCP Internal Medicine; Visit Provider Nurse Practitioner Family
DX: I89.0 Lymphedema, not elsewhere classified (principal); L97.812 Non-pressure chronic ulcer of other part of right lower leg with fat layer exposed; I73.9 Peripheral vascular disease, unspecified
CPT/HCPCS: 11042; 93923

== ENCOUNTER 2020-05-01 14:40 | Outpatient (CLI) | payer OTHER, SELFPAY | END 2020-05-01 14:41 | disposition home or self-care (01) | LOC: WOUND 14:41 | PROVIDERS: PCP Internal Medicine; Visit Provider Nurse Practitioner Family | DX: I89.0 Lymphedema, not elsewhere classified (principal); L97.812 Non-pressure chronic ulcer of other part of right lower leg with fat layer exposed | CPT/HCPCS: 11042 ==

== ENCOUNTER 2020-05-06 15:30 | Outpatient (CLI) | payer OTHER, SELFPAY | END 2020-05-06 15:31 | disposition home or self-care (01) | LOC: WOUND 15:30 | PROVIDERS: PCP Internal Medicine; Visit Provider Nurse Practitioner Family | DX: L97.812 Non-pressure chronic ulcer of other part of right lower leg with fat layer exposed (principal); L97.822 Non-pressure chronic ulcer of other part of left lower leg with fat layer exposed | CPT/HCPCS: 29581 ==

== ENCOUNTER 2020-05-15 14:22 | Outpatient (CLI) | payer OTHER, SELFPAY | END 2020-05-15 14:23 | disposition home or self-care (01) | LOC: WOUND 14:22 | PROVIDERS: PCP Internal Medicine; Visit Provider Thoracic Surgery (Cardiothoracic Vascular Surgery) | DX: I89.0 Lymphedema, not elsewhere classified (principal); L97.812 Non-pressure chronic ulcer of other part of right lower leg with fat layer exposed | CPT/HCPCS: 11042; A6545 ==

== ENCOUNTER 2020-05-22 14:23 | Outpatient (CLI) | payer OTHER, SELFPAY | END 2020-05-22 14:24 | disposition home or self-care (01) | LOC: WOUND 14:24 | PROVIDERS: PCP Internal Medicine; Visit Provider Nurse Practitioner Family | DX: I89.0 Lymphedema, not elsewhere classified (principal); L97.812 Non-pressure chronic ulcer of other part of right lower leg with fat layer exposed | CPT/HCPCS: 11042 ==

== ENCOUNTER 2020-05-29 14:33 | Outpatient (CLI) | payer OTHER, SELFPAY | END 2020-05-29 14:34 | disposition home or self-care (01) | LOC: WOUND 14:33 | PROVIDERS: PCP Internal Medicine; Visit Provider Thoracic Surgery (Cardiothoracic Vascular Surgery) | DX: Z09 Encounter for follow-up examination after completed treatment for conditions other than malignant neoplasm (principal) | CPT/HCPCS: 99211 ==

== ENCOUNTER 2021-04-06 14:00 | Outpatient (CLI) | payer OTHER, SELFPAY ==
--- NOTE | 2021-04-06 | CT_ITS ---
WS: [id number] CT ABDOMEN PELVIS TECHNIQUE: Contrast-enhanced CT of the abdomen and pelvis with coronal and sagittal reformatted image s. CLINICAL INFORMATION: ABDOMEN PAIN COMPARISON: CT April 23, 2019 DLP: 1150.[address] scans at [facility] use at least one of these dose optimization techniques: automated e xposure control; mA and/or kV adjustment per patient size (includes targeted exams where dose is matc hed to clinical indication); or iterative reconstruction. FINDINGS: Mild diffuse fatty infiltration of the liver. Numerous hepatic cysts. Normal portal vein and splenic vein. Fatty atrophy of the pancreas. Normal spleen. Normal GE junction. Subsegmental atelectasis in t he lung bases. Bilateral renal cortical atrophy. Bilateral renal cysts. Normal gallbladder. Normal caliber abdominal aorta. No abdominal or pelvic lymphadenopathy. Heterogeneous enhancing enlarged prostate with impingement on the bladder. Prostate measures 5.0 x 5. 3 CM. Recommend correlation PSA. Sigmoid diverticulosis. No evidence of acute diverticulitis. No evidence of high-grade small or large bowel obstruction. Prior ventral abdominal wall hernia repair with fluid collection in the hernia mesh. This is increase d in size since 2019 and today measures 12.8 x 19.4 x 10.1 cm cm AP by transverse by craniocaudal. Mi mbar scoliosis convex left. Hypertrophic changes lower thoracic and upper lumbar spine. Bilateral fat -containing inguinal hernias. CT/CT abdomen pelvis w con* [id number] IMPRESSION: 1. Prior ventral abdominal wall hernia repair with interposing fluid. This was present in 2019 but has progressed today measuring 12.8 x 19.4 x 10.1 cm cm AP by transverse by craniocaudal 2. Diffuse fatty infiltration of the liver. Incidental numerous hepatic cysts. 3. Bilateral renal cortical atrophy with bilateral renal cysts. No hydronephro sis in either kidney. 4. Normal caliber abdominal aorta. 5. Enlarged heterogeneous enhancing prostate with indentation on the bladder. Correlation PSA. This is progressed since 2019. 6. Sigmoid diverticulosis. No evidence of acute diverticulitis.
[2021-04-06] MEDS: iodixanol 320 mg/mL 100mL Btl IV (15:37)
== END 2021-04-06 14:01 | disposition home or self-care (01) ==
PROVIDERS: PCP Internal Medicine; Visit Provider Family Medicine
DX: K76.0 Fatty (change of) liver, not elsewhere classified (principal); K76.89 Other specified diseases of liver; N28.1 Cyst of kidney, acquired; N40.0 Benign prostatic hyperplasia without lower urinary tract symptoms; K57.30 Diverticulosis of large intestine without perforation or abscess without bleeding
CPT/HCPCS: 74177; Q9967

== ENCOUNTER 2021-05-01 12:19 | Outpatient (CLI) | payer OTHER, SELFPAY ==
--- NOTE | 2021-05-01 12:45 | USCV_ITS ---
Madhavi Ramirez Age: 80 Gender: M : 1940 Exam Date: 05/01/2021 13:05 Ordering Phys: Cony Huertas MD Technologist: Cailin Bryson [place] [facility] [place]: leg and feet pain Risk Factors: Previous Vascular Surgery: NONE RIGHT LEFT BP: 127.0 / 91.00 BP: 112.0/ 67.00 0 0 Waveform Velocity (cm/s) Velocity (cm/s) Waveform Triphasic 71.9 Iliac Prox 58.2 Triphasic Triphasic 75.7 Iliac Mid 87.8 Triphasic Triphasic 67.2 Iliac Distal 66.2 Triphasic Triphasic 46.6 MECHANICAL ARTIST 77.1 Triphasic Triphasic 56.7 SFA Prox 54.7 Triphasic Triphasic 37.5 SFA Mid 42.1 Triphasic Triphasic SFA Dist Triphasic 36.3 67.6 Triphasic 56.5 POP 49.3 Triphasic Triphasic 64.5 FAMILY PRACTICE PHYSICIAN ASSISTANT 67.0 Triphasic Biphasic 26.1 DPA 34.2 Triphasic FINDINGS RT FAMILY PRACTICE PHYSICIAN ASSISTANT > 220 No PRASAD LT FAMILY PRACTICE PHYSICIAN ASSISTANT > 220 No PRASAD Noncompressible vessels at the ankle bilaterally CONCLUSIONS 1. Noncompressible vessels at the ankle bilaterally 2. Near normal Doppler waveforms and velocities bilaterally No significant arterial obstruction, based on the above findings Dr Tierney French MD [facility] (Electronically Signed) Final Date: 02 May 2021 19:38 S
== END 2021-05-01 12:20 | disposition home or self-care (01) ==
LOC: RAD 12:23
PROVIDERS: PCP Family Medicine; Visit Provider Family Medicine
DX: M79.604 Pain in right leg (principal); M79.605 Pain in left leg; M79.672 Pain in left foot; M79.671 Pain in right foot
CPT/HCPCS: 93925

== ENCOUNTER 2021-11-18 14:32 | Outpatient (CLI) | payer OTHER, SELFPAY ==
--- NOTE | 2021-11-18 14:42 | CT_ITS ---
WS: [id number] CT HEAD TECHNIQUE: Noncontrast CT of the head obtained from the skullbase to the vertex. CLINICAL INFORMATION: FALL COMPARISON: CT July 18, 2019 DLP: 1054.[address] scans at [facility] use at least one of these dose optimization techniques: automated e xposure control; mA and/or kV adjustment per patient size (includes targeted exams where dose is matc hed to clinical indication); or iterative reconstruction. FINDINGS: No evidence of intracranial hemorrhage or mass effect. Ventricular system and basal cisterns are martin nt. Moderate small vessel changes with moderate parenchymal volume loss. No extra-axial fluid collect ions. No evidence of mass or mass effect. 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 Mastoid air cells are well aerated. Retention cyst or polyp LEFT maxillary sinus measuring 3.5 x 2.0 CM. Opacification LEFT frontal sinus and LEFT frontal ethmoidal recess. Normal visualized posterior n asopharynx. Cavernous carotid calcification. Mild central canal stenosis in the mid cervical spine wi th marked thoracic kyphosis. CT/CT head wo con* [id number] IMPRESSION: 1. No evidence of intracranial hemorrhage or mass effect. 2. Moderate small vessel changes. Moderate parenchymal volume loss. 3. 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 4. LEFT frontal and frontal ethmoidal sinusitis.
== END 2021-11-18 14:33 | disposition home or self-care (01) ==
LOC: RAD 14:35
PROVIDERS: PCP Family Medicine; Visit Provider Family Medicine
DX: Z01.89 Encounter for other specified special examinations (principal)
CPT/HCPCS: 70450

== ENCOUNTER 2022-05-04 13:41 | Outpatient (CLI) | payer OTHER, SELFPAY ==
--- NOTE | 2022-05-04 13:48 | USCV_ITS ---
Madhavi Ramirez Age: 81 Gender: M : 1940 Exam Date: 05/04/2022 14:11 Ordering Phys: Cony Huertas MD Technologist: Exam Location: [facility] [place] Indication: chest pain BP: 117 / 68 HR: 74 Rhythm: Sinus Technical Quality: Adequate MEASUREMENTS (Male / Female) Normal Values 2D ECHO LV Diastolic Diameter PLAX 6.2 cm 4.2 - 5.9 / 3.9 - 5.3 cm LV Systolic Diameter PLAX 4.3 cm IVS Diastolic Thickness 1.2 cm 0.6 - 1.0 / 0.6 - 0.9 cm IVS Systolic Thickness 1.7 cm LVPW Diastolic Thickness 1.5 cm 0.6 - 1.0 / 0.6 - 0.9 cm LVPW Systolic Thickness 1.7 cm LVOT Diameter 2.1 cm LV Ejection Fraction 2D Teich 57.9 % LV Ejection Fraction MOD 2C 54.9 % LV Ejection Fraction 2C AL 56.0 % LA Diameter 4.4 cm M-MODE Aortic Annulus Diameter 4.8 cm LA Ao Ratio MM 1.0 MV E Point Septal Separation 1.8 cm DOPPLER AV Peak Velocity 110.0 cm/s LVOT Peak Velocity 90.0 cm/s AV Area Cont Eq vti 2.7 cm squared AV Area Cont Eq pk 2.8 cm squared MV Area PHT 5.0 cm squared Mitral E to A Ratio 2.0 MV E' Velocity 78.0 cm/s Mitral E to LV E' Septal Ratio 11.3 TR Peak Velocity 97.0 cm/s TR Peak Gradient 3.8 mmHg TV Peak E Velocity 93.0 cm/s Right Atrial Pressure 3.0 mmHg Pulmonary Artery Systolic Pressu 6.8 mmHg PV Peak Velocity 79.0 cm/s RV Acceleration Time 0.1 s FINDINGS Left Ventricle Grossly normal in size. LV systolic function is grossly mildly reduced. Regional wall abnormalities cannot be assessed accurately because of poor ultrasonic windows. Right Ventricle Grossly normal Right Atrium Not well-visualized Left Atrium Dilated Mitral Valve Mild mitral annular calcification. Aortic Valve Not well-visualized. No significant stenosis or regurgitation Tricuspid Valve Grossly normal Pulmonic Valve Not well-visualized Pericardium Normal Aorta Mildly dilated IVC Not well visualized CONCLUSIONS Technically very limited quality echocardiogram because of poor ultrasonic windows. Grossly mildly reduced LV systolic function. Regional wall motion abnormalities cannot be assessed accurately because of poor ultrasonic windows. Left atrial enlargement Mild mitral annular calcification Valvular structures are not well visualized. Mildly dilated aorta Comparison with prior echocardiogram is not possible because of poor ultrasonic windows. Recommend limited echocardiogram with contrast to accurately assess LV function and regional wall motion Cy Olsen MD (Electronically Signed) Final Date: 09 May 2022 14:25 S
--- NOTE | 2022-05-04 13:50 | CT_ITS ---
WS: [id number] CT CHEST WITHOUT INTRAVENOUS CONTRAST HISTORY: CHRONIC SHORTNESS OF BREATH, COPD, END STAGE RENAL DISEASE TECHNIQUE: Contiguous 5 mm axial imaging performed on the thorax. Coronal and sagittal reformats are submitted. All CT scans at [facility] use at least one of these dose optimization techniques: automated exposure control; mA and/or kV adjustment per patient size (includes targeted exams where dose is matched to clinical indication); or iterative reconstruction. CONTRAST: None DLP: 771.21 mGy.cm COMPARISON: 10/03/2017 Lungs and central airway: Patient is markedly kyphotic. Numerous bilateral pulmonary nodules are rose marie entified. The largest nodule measures 15 mm this is in the LEFT upper lobe adjacent to the fissure. T here is an additional nodule which is now calcified at the lingula. Linear areas of subsegmental atel ectasis at the lung bases. 5 mm nodule RIGHT lower thorax is probably along the fissure. There are no new or significantly enlarging masses. Pleura: Normal. No pleural effusion. Heart and pericardium: Moderate cardiomegaly. Mediastinum and larisa: No mediastinum or hilar adenopathy. Vessels: Mild atherosclerosis aorta. Mild coronary artery calcification. Chest wall and lower neck: No soft tissue masses. Upper abdomen: Numerous hepatic low-attenuation masses. These are probably cysts and were present on the prior examination. The largest now measures 4.9 x 3.5 cm. No adrenal mass. Osseous structures: Marked increase in thoracic kyphosis. CT/CT chest wo con [id number] IMPRESSION: 1. Calcified and noncalcified pulmonary nodules without significant progressio n in size. No new nodules. 2. Subsegmental atelectasis at the lung bases. 3. Marked thoracic kyphosis. 4. Hepatic cysts. 5. Mild atherosclerosis aorta.
== END 2022-05-04 13:42 | disposition home or self-care (01) ==
LOC: RAD 13:43
PROVIDERS: PCP Family Medicine; Visit Provider Family Medicine
DX: R06.02 Shortness of breath (principal); J44.9 Chronic obstructive pulmonary disease, unspecified; N18.6 End stage renal disease; R91.8 Other nonspecific abnormal finding of lung field; M40.204 Unspecified kyphosis, thoracic region; K76.89 Other specified diseases of liver; I70.0 Atherosclerosis of aorta; J98.11 Atelectasis; I34.81 Nonrheumatic mitral (valve) annulus calcification
CPT/HCPCS: 71250; 93306

== ENCOUNTER 2022-08-02 16:55 | Outpatient (CLI) | payer MEDICARE, SELFPAY ==
[2022-08-02 17:16] LABS: Alanine Aminotransferase 9 U/L (0-41); Alkaline Phosphatase 54 U/L (40-130); Calcium 9.2 mg/dL (8.5-10.5); Carbon Dioxide 31 mmol/L (22-29); Chloride 86 mmol/L (98-107); Globulin 3.9 g/dL (1.3-4.6); Glucose 47 mg/dL (65-115); Osmolality Calculated 302 mOsm/kg (285-295); Sodium 134 mmol/L (136-145); Total Bilirubin 0.7 mg/dL (0.15-1.2); Total Protein 6.9 g/dL (6.6-8.7)
[2022-08-02 17:21] LABS: Anion Gap 20.3 (5-19); Aspartate Amino Transferase 24 U/L (0-40); Potassium 3.3 mmol/L (3.5-5.1)
[2022-08-03 09:53] LABS: Blood Urea Nitrogen 89 mg/dL (8-23)
== END 2022-08-02 16:56 | disposition home or self-care (01) ==
LOC: LAB 16:58
PROVIDERS: PCP Family Medicine; Visit Provider Nurse Practitioner Family
DX: N18.9 Chronic kidney disease, unspecified (principal)
CPT/HCPCS: 80053